=== PATIENT | male | born 1930 | race American Indian/Alaskan Native ===

== ENCOUNTER 2016-08-01 01:52 | Emergency (ER) | payer MEDICARE, OTHER, MEDICAID ==
[2016-08-01] MEDS ORDERED: Sodium Chloride 0.9% 10 ML Syringe FLUSH PRN (02:30)
[2016-08-01 04:48] VITALS: BP 142/66
--- NOTE | 2016-08-01 05:41 | EDM.PDOC ---
ED HISTORY OF PRESENT ILLNESS - General Chief Complaint: Chest Pain Stated Complaint: [facility] Time Seen by Provider: 08/01/16 02:30 Source: Reports: Patient, EMS, Family History Limitations: Reports: No limitations - History of Present Illness INITIAL COMMENTS - FREE TEXT/NARRATIVE: This patient arrived by EMS with the complaint of chest pain. He described it as a dull pain across the front chest. It lasted a total of about 15 minutes and did when EMS gave him a spray of nitroglycerin and aspirin. The patient thinks it's because his blood sugar got low. He he said that the blood sugar had gotten down to 67 before this episode and generally when his blood sugar gets down he starts getting some palpitations and chest pain. He says he has no history of any kind of heart disease. He did have a stroke last year. He denies any shortness of breath diaphoresis or nausea - Related Data Allergies/ADRs: Allergies Allergy/AdvReac Type Severity Reaction Status Date / Time amoxicillin Allergy Rash Verified 08/01/16 02:27 insulin glargine, human Allergy Cannot Verified 08/01/16 02:27 recombin. a Remember [From Lantus] Penicillins Allergy Rash Verified 08/01/16 02:27 lisinopril AdvReac Cough Verified 08/01/16 02:27 Home Meds: Home Meds *Urea 10% Lotion 1 dose TOP Q8H PRN 06/28/15 [History] Aspirin 81 mg PO DAILY 06/28/15 [History] Atenolol 25 mg PO BID 06/28/15 [History] Cholecalciferol (Vitamin D3) [Vitamin D3] 1,000 units PO BID 06/28/15 [History] Ranitidine [Zantac] 150 mg PO DAILY 06/28/15 [History] amLODIPine Besylate [Amlodipine Besylate] 10 mg PO DAILY 06/28/15 [History] atorvaSTATin [Lipitor] 40 mg PO BEDTIME 06/28/15 [History] cloNIDine HCl [Clonidine HCl] 0.2 mg PO BEDTIME 06/28/15 [History] Levothyroxine 125 mcg PO ACBREAKFAST 01/03/16 [History] Tiotropium [Spiriva HandiHaler] 18 mcg PO DAILY 02/24/16 [History] Baclofen 10 mg PO Q8H PRN 11/17/16 [History] Losartan [Cozaar] 25 mg PO DAILY 04/17/16 [History] hydrOXYzine HCl [hydrOXYzine] 25 mg PO Q12HR PRN 04/17/16 [History] *O2 3 l INH ASDIRECTED 04/24/16 [History] Clopidogrel [Plavix] 1 tab PO DAILY 08/01/16 [History] Doxepin [SINEquan] 1 - 2 cap PO BEDTIME 08/01/16 [History] Gabapentin [Neurontin] 1 tab PO BEDTIME 08/01/16 [History] Insulin NPH/Insulin Reg,Human [Novolin 70-30] 60 units SUBCUT BID 08/01/16 [ History] Ipratropium [place] 1 dose INH QID 08/01/16 [History] guaiFENesin/Codeine Phosphate [Guaiatussin AC Liquid] 5 ml PO Q4HR PRN 08/01/16 [History] hydrOXYzine HCl [hydrOXYzine] 1 tab PO BEDTIME 08/01/16 [History] Past Medical History HEENT History: Reports: Allergic rhinitis, Cataract, Hard of hearing, Impaired vision, Sinusitis Cardiovascular History: Reports: Aneurysm, High cholesterol, Hypertension, Other (see below) Other Cardiovascular History: 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 Uses 3 liters of O2. Gastrointestinal History: Reports: GERD Genitourinary History: Reports: Diabetic nephropathy, Prostate disorder, Urinary incontinence, UTI, recurrent Other Genitourinary History: known UTI Musculoskeletal History: Reports: Arthritis, Back pain, chronic, Other (see below) Other Musculoskeletal History: "sciatica Neurological History: Reports: CVA, Head trauma, Neuropathy, diabetic, Seizure, TIA, Other (see below) Other Neuro History: aneurysm 1999. Psychiatric History: Reports: Anxiety, Depression Endocrine/Metabolic History: Reports: Diabetes, type II, Hypothyroidism - Infectious Disease History Infectious Disease History: Reports: Chicken pox - Past Surgical History HEENT Surgical History: Reports: Cataract surgery, Oral surgery, Tonsillectomy GI Surgical History: Reports: Cholecystectomy Social & Family History - Family History Family Medical History: Unobtainable - Tobacco Use Smoking Status *Q: Never Smoker Years of Tobacco use: 12 Packs/Tins Daily: 1 Used Tobacco, but Quit: No Month Tobacco Last Used: 1995 Second Hand Smoke Exposure: No - Caffeine Use Caffeine Use: Reports: Coffee, Soda, Tea - Recreational Drug Use Recreational Drug Use: No - Living Situation & Occupation Occupation: disabled (lives with his Son in [place], [place].) ED ROS GENERAL - Review of Systems Review Of Systems: See Below Constitutional: Reports: no symptoms HEENT: Reports: No symptoms Respiratory: Reports: no symptoms Cardiovascular: Reports: Chest pain Endocrine: Reports: no symptoms GI/Abdominal: Reports: No symptoms : Reports: no symptoms ED EXAM, GENERAL - Physical Exam Exam: See Below Exam Limited By: No limitations General Appearance: alert, WD/WN, no apparent distress Eye Exam: bilateral eye: normal inspection Ears: normal external exam Nose: normal inspection Throat/Mouth: Normal inspection Head: atraumatic Neck: normal inspection Respiratory/Chest: lungs clear Cardiovascular: normal peripheral pulses, regular rate, rhythm, no murmur GI/Abdominal: soft, non tender Back Exam: normal inspection Extremities: normal inspection Neurological: alert, oriented, CN II-XII intact Psychiatric: normal affect Skin Exam: Warm, Dry Course - Vital Signs Last Recorded V/S: Last Vital Signs Temp 36.4 C 08/01/16 02:11 Pulse 61 08/01/16 04:48 Resp 14 08/01/16 02:11 BP 142/66 H 08/01/16 04:48 Pulse Ox 96 08/01/16 04:48 - Orders/Labs/Meds Orders: Active Orders 24 hr Category Date Time Status EKG Documentation Completion [RC] ASDIRECTED Care 08/01/16 02:31 Active Chest 1V Frontal [CR] Urgent Exams 08/01/16 02:31 Taken Sodium Chloride 0.9% [Saline Flush] Med 08/01/16 02:30 Active 10 ml FLUSH ASDIRECTED PRN Saline Lock Insert [OM.PC] Urgent Oth 08/01/16 02:30 Ordered EKG 12 Lead [EK] Urgent Ther 08/01/16 02:31 Ordered Medication Orders Sodium Chloride (Saline Flush) 10 ml FLUSH ASDIRECTED PRN PRN Reason: Keep Vein Open Labs: Laboratory Tests 08/01/16 08/01/16 08/01/16 Range/Units 02:30 02:30 04:30 WBC 10.3 (4.5-11.0) K/uL RBC 3.89 L (4.30-5.90) M/uL Hgb 11.8 L (12.0-15.0) g/dL Hct 34.4 L (40.0-54.0) % MCV 88 (80-98) fL MCH 30 (27-31) pg MCHC 34 (32-36) % Plt Count 271 (150-400) K/uL Neut % (Auto) 72 H (36-66) % Lymph % (Auto) 14 L (24-44) % [place] % (Auto) 11 H (2-6) % Eos % (Auto) 4 (2-4) % Baso % (Auto) 1 (0-1) % Sodium 137 L (140-148) mmol/L Potassium 3.9 (3.6-5.2) mmol/L Chloride 101 (100-108) mmol/L Carbon Dioxide 27 (21-32) mmol/L Anion Gap 12.9 (5.0-14.0) mmol/L BUN 17 (7-18) mg/dL Creatinine 1.4 H (0.8-1.3) mg/dL Est Cr Clr Drug Dosing 36.72 mL/min Estimated GFR (MDRD) 48 L (>60) Glucose 158 H (74-106) mg/dL Calcium 8.5 (8.5-10.1) mg/dL Total Bilirubin 0.3 (0.2-1.0) mg/dL AST 13 L (15-37) U/L ALT 18 (12-78) U/L Alkaline Phosphatase 78 (46-116) U/L Troponin I < 0.017 < 0.017 (0.000-0.056) ng/mL Total Protein 6.8 (6.4-8.2) g/dL Albumin 3.1 L (3.4-5.0) g/dL Globulin 3.7 H (2.3-3.5) g/dL Albumin/Globulin Ratio 0.8 L (1.2-2.2) Meds: Medications Generic Name Dose Route Start Last Admin Trade Name Freq PRN Reason Stop Dose Admin Sodium Chloride 10 ml 08/01/16 02:30 Saline Flush FLUSH ASDIRECTED PRN Keep Vein Open - Re-Assessments/Exams Free Text/Narrative Re-Assessment/Exam: 08/01/16 05:52 The patient remained pain free the entire time here in the ER. EKG shows sinus rhythm at 62 beats per minute there is an old inferior infarct. There are no appreciable ST or T changes. This was reviewed with two previous EKGs Initial troponin and a 2 hour troponin are both negative. Departure - Departure Time of Disposition: 05:38 Disposition: Home, Self-Care 01 Condition: fair Clinical Impression: Chest pain Instructions: Chest Wall Pain, [id number] Referrals: PCP,None [Primary Care Provider] - Forms: ED Department Discharge Additional Instructions: Continue checking her blood sugar regularly as before. If you are getting low readings then contact your Dr. about adjusting the dose. For you, anything below 100 is too low. - My Orders Last 24 Hours: My Active Orders 08/01/16 02:30 Sodium Chloride 0.9% [Saline Flush] 10 ml FLUSH ASDIRECTED PRN Saline Lock Insert [OM.PC] Urgent 08/01/16 02:31 EKG Documentation Completion [RC] ASDIRECTED Chest 1V Frontal [CR] Urgent EKG 12 Lead [EK] Urgent - Assessment/Plan Last 24 Hours: My Active Orders 08/01/16 02:30 Sodium Chloride 0.9% [Saline Flush] 10 ml FLUSH ASDIRECTED PRN Saline Lock Insert [OM.PC] Urgent 08/01/16 02:31 EKG Documentation Completion [RC] ASDIRECTED Chest 1V Frontal [CR] Urgent EKG 12 Lead [EK] Urgent
--- NOTE | 2016-08-01 09:14 | CR ---
Chest 1V Frontal HISTORY: Chest pain. COMPARISON: 04/24/2016. FINDINGS: Limited inspiration. Cardiac size normal. Pulmonary vessels normally distributed. No focal infiltrates or effusions.
== END 2016-08-01 06:10 | disposition home or self-care (01) ==
LOC: JP.ED 01:52
DX: R07.9 Chest pain, unspecified (principal); I10 Essential (primary) hypertension; E11.40 Type 2 diabetes mellitus with diabetic neuropathy, unspecified; F41.9 Anxiety disorder, unspecified; F32.9 Major depressive disorder, single episode, unspecified; E03.9 Hypothyroidism, unspecified; Z98.49 Cataract extraction status, unspecified eye; Z90.49 Acquired absence of other specified parts of digestive tract; Z98.890 Other specified postprocedural states; Z86.73 Personal history of transient ischemic attack (TIA), and cerebral infarction without residual deficits; Z79.82 Long term (current) use of aspirin; Z79.02 Long term (current) use of antithrombotics/antiplatelets; Z79.4 Long term (current) use of insulin; Z79.899 Other long term (current) drug therapy; Z88.0 Allergy status to penicillin; Z88.1 Allergy status to other antibiotic agents; Z88.8 Allergy status to other drugs, medicaments and biological substances
CPT/HCPCS: 36415; 71010; 71010-26; 80053; 84484; 85025; 93005; 93010; 99284; 99285-25

== ENCOUNTER 2016-10-05 20:32 | Inpatient (IN) | payer MEDICARE, OTHER, MEDICAID ==
[2016-10-05] MEDS ORDERED: Sodium Chloride 0.9% 1,000 ML IV SCH (21:15)
[2016-10-05] MEDS ORDERED: Levofloxacin/Dextrose 5%-Water 500 MG in Premix Bag 1 BAG IV ONE (22:00)
[2016-10-05] MEDS ORDERED: cefTRIAXone 1 GM in Sodium Chloride 0.9% 50 ML IV ONE (22:48)
--- NOTE | 2016-10-05 23:50 | EDM.PDOC ---
ED HPI GENERAL MEDICAL PROBLEM - General Chief Complaint: Chest Pain Stated Complaint: [facility] Time Seen by Provider: 10/05/16 20:39 Source of Information: Reports: Patient, Family (Son) History Limitations: Reports: No limitations - History of Present Illness INITIAL COMMENTS - FREE TEXT/NARRATIVE: weakness, this is a 86 year old male presents to ER with his adult Son for evaluation. His Son reports for the past week, Mr. Mccloud has been having increased weakness, was walking with cane, now use a walker for the past week, decrease appetite, he is seeing former and friends, intermittent shaking chills with fever. reports chest discomfort from frequent cough, no appetitie for 2 days. reports bladder infection 2-3 weeks ago. took all medication as directed. history of vascular dementia. lives with Son Primary Care Provider; Keerthi Birch NP, [facility] Onset: gradual Duration: Week(s): (one week of increasing weakness and fatigue), Waxing/waning Location: Reports: generalized Improves with: Reports: Rest Worsens with: Reports: Movement Associated Symptoms: Reports: confusion (intermittent), cough, fever/chills, malaise, nausea/vomiting, shortness of breath (chronic) Treatments JBOSS DEVELOPER: Reports: Nitroglycerin, Other (see below) Other Treatments JBOSS DEVELOPER: Nitro by ambulance Left lower Chest Pain Score (Numeric/FACES): 6 - Related Data Allergies Allergy/AdvReac Type Severity Reaction Status Date / Time amoxicillin Allergy Rash Verified 10/05/16 20:51 insulin glargine, human Allergy Cannot Verified 10/05/16 20:51 recombin. a Remember [From Lantus] Penicillins Allergy Rash Verified 10/05/16 20:51 lisinopril AdvReac Cough Verified 10/05/16 20:51 Home Meds: Home Meds *Urea 10% Lotion 1 dose TOP Q8H PRN 06/28/15 [History] Aspirin 81 mg PO DAILY 06/28/15 [History] Atenolol 25 mg PO BID 06/28/15 [History] Cholecalciferol (Vitamin D3) [Vitamin D3] 1,000 units PO BID 06/28/15 [History] Ranitidine [Zantac] 150 mg PO DAILY 06/28/15 [History] amLODIPine Besylate [Amlodipine Besylate] 10 mg PO DAILY 06/28/15 [History] atorvaSTATin [Lipitor] 40 mg PO BEDTIME 06/28/15 [History] cloNIDine HCl [Clonidine HCl] 0.2 mg PO BEDTIME 06/28/15 [History] Levothyroxine 125 mcg PO ACBREAKFAST 01/03/16 [History] Tiotropium [Spiriva HandiHaler] 18 mcg PO DAILY 02/24/16 [History] Baclofen 10 mg PO Q8H PRN 04/17/16 [History] Losartan [Cozaar] 25 mg PO DAILY 04/17/16 [History] hydrOXYzine HCl [hydrOXYzine] 25 mg PO Q12HR PRN 04/17/16 [History] *O2 1.5 l INH ASDIRECTED 04/24/16 [History] Clopidogrel [Plavix] 1 tab PO DAILY 08/01/16 [History] Doxepin [SINEquan] 1 - 2 cap PO BEDTIME 08/01/16 [History] Gabapentin [Neurontin] 1 tab PO BEDTIME 08/01/16 [History] Insulin NPH/Insulin Reg,Human [Novolin 70-30] 60 units SUBCUT BID 08/01/16 [ History] Ipratropium [place] 1 dose INH QID 08/01/16 [History] guaiFENesin/Codeine Phosphate [Guaiatussin AC Liquid] 5 ml PO Q4HR PRN 08/01/16 [History] hydrOXYzine HCl [hydrOXYzine] 1 tab PO BEDTIME 08/01/16 [History] Past Medical History HEENT History: Reports: Allergic rhinitis, Cataract, Hard of hearing, Impaired vision, Sinusitis Cardiovascular History: Reports: Aneurysm, High cholesterol, Hypertension, Other (see below) Other Cardiovascular History: 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 Uses 3 liters of O2. Gastrointestinal History: Reports: GERD Genitourinary History: Reports: Diabetic nephropathy, Prostate disorder, Urinary incontinence, UTI, recurrent Other Genitourinary History: known UTI Musculoskeletal History: Reports: Arthritis, Back pain, chronic, Other (see below) Other Musculoskeletal History: "sciatica Neurological History: Reports: CVA, Head trauma, Neuropathy, diabetic, Seizure, TIA, Other (see below) Other Neuro History: aneurysm 1999. Psychiatric History: Reports: Anxiety, Depression Endocrine/Metabolic History: Reports: Diabetes, type II, Hypothyroidism - Infectious Disease History Infectious Disease History: Reports: Chicken pox, Influenza - Past Surgical History HEENT Surgical History: Reports: Cataract surgery, Oral surgery, Tonsillectomy GI Surgical History: Reports: Cholecystectomy Social & Family History - Family History Family Medical History: Unobtainable - Tobacco Use Smoking Status *Q: Never Smoker Years of Tobacco use: 12 Packs/Tins Daily: 1 Used Tobacco, but Quit: No Month Tobacco Last Used: 1995 Second Hand Smoke Exposure: No - Caffeine Use Caffeine Use: Reports: Coffee, Tea - Recreational Drug Use Recreational Drug Use: No - Living Situation & Occupation Occupation: disabled (lives with his Son in [place], [place].) ED ROS GENERAL - Review of Systems Review Of Systems: See Below Constitutional: Reports: fever, chills, malaise, weakness, fatigue, decreased appetite (x 2 days) HEENT: Reports: No symptoms Respiratory: Reports: Shortness of Breath, Pleuritic Chest Pain, Cough, Sputum Cardiovascular: Reports: No symptoms, Dyspnea on exertion, Edema Endocrine: Reports: other (diaabetes) GI/Abdominal: Reports: Nausea : Reports: other (recent treatment for UTI 2-3 weeks ago.) Musculoskeletal: Reports: muscle pain, muscle stiffness Skin: Reports: erythema, change in hair/nails Neurological: Reports: Pre-Existing Deficit Psychiatric: Reports: No symptoms Hematologic/Lymphatic: Reports: no symptoms Immunologic: Reports: no symptoms ED EXAM, GENERAL - Physical Exam Exam: See Below Exam Limited By: No limitations General Appearance: alert, WD/WN, no apparent distress Eye Exam: bilateral eye: EOMI Ears: normal external exam, normal canal, hearing grossly normal, normal TMs Ear Exam: bilateral ear: auricle normal, canal normal Nose: normal inspection, normal mucosa, no blood Throat/Mouth: Normal inspection, Normal lips, Normal teeth, Normal gums, Normal oropharynx, Normal voice, No airway compromise Head: atraumatic, normocephalic Neck: normal inspection, supple, non-tender, full range of motion Respiratory/Chest: no respiratory distress, crackles, rhonchi Cardiovascular: regular rate, rhythm, other (bilateral lower leg edema) GI/Abdominal: normal bowel sounds, soft, non tender, no organomegaly, no distention (Male) Exam: Deferred Rectal (Males) Exam: Deferred Back Exam: normal inspection Extremities: pedal edema Neurological: alert, oriented, normal reflexes Psychiatric: normal affect, normal mood Skin Exam: Warm, Dry, Normal color, Wound/incision (between toes skin is moist, red, with white exudate) Course - Vital Signs Last Recorded V/S: Last Vital Signs Temp 37.1 C 10/05/16 20:45 Pulse 96 10/05/16 23:00 Resp 16 10/05/16 21:00 BP 162/73 H 10/05/16 23:00 Pulse Ox 93 L 10/05/16 23:00 - Orders/Labs/Meds Orders: Active Orders 24 hr Category Date Time Status Patient Status Manage Transfer [TRANSFER] Routine ADT 10/05/16 22:55 Active Cardiac Monitoring [RC] .As Directed Care 10/05/16 22:55 Active EKG Documentation Completion [RC] ASDIRECTED Care 10/05/16 21:01 Active Chest 1V Frontal [CR] Urgent Exams 10/05/16 21:00 Taken CULTURE BLOOD [BC] Urgent Lab 10/05/16 22:00 Received CULTURE BLOOD [BC] Urgent Lab 10/05/16 22:10 Received Sodium Chloride 0.9% [Normal Saline] 1,000 ml Med 10/05/16 21:15 Active IV ASDIRECTED Blood Culture x2 Reflex Set [OM.PC] Urgent Oth 10/05/16 21:59 Ordered Resuscitation Status Routine Resus Stat 10/05/16 22:57 Ordered EKG 12 Lead [EK] Urgent Ther 10/05/16 21:00 Ordered Medication Orders Sodium Chloride (Normal Saline) 1,000 mls @ 75 mls/hr IV ASDIRECTED SHMUEL Last Admin: 10/05/16 21:39 Dose: 75 mls/hr Labs: Laboratory Tests 10/05/16 10/05/16 10/05/16 Range/Units 21:14 21:14 21:14 WBC 11.9 H (4.5-11.0) K/uL RBC 4.47 (4.30-5.90) M/uL Hgb 13.3 (12.0-15.0) g/dL Hct 39.6 L (40.0-54.0) % MCV 89 (80-98) fL MCH 30 (27-31) pg MCHC 34 (32-36) % Plt Count 274 (150-400) K/uL Neut % (Auto) 76 H (36-66) % Lymph % (Auto) 11 L (24-44) % [place] % (Auto) 11 H (2-6) % Eos % (Auto) 2 (2-4) % Baso % (Auto) 1 (0-1) % PT 10.6 (9.5-12.0) sec INR 1.00 (0.80-1.20) Sodium 140 (140-148) mmol/L Potassium 4.6 (3.6-5.2) mmol/L Chloride 103 (100-108) mmol/L Carbon Dioxide 28 (21-32) mmol/L Anion Gap 8.8 (5.0-14.0) mmol/L BUN 21 H (7-18) mg/dL Creatinine 1.5 H (0.8-1.3) mg/dL Est Cr Clr Drug Dosing 34.27 mL/min Estimated GFR (MDRD) 45 L (>60) Glucose 148 H (74-106) mg/dL Lactic Acid (0.4-2.0) mmol/L Calcium 8.5 (8.5-10.1) mg/dL Magnesium 1.9 (1.8-2.4) mg/dL Total Bilirubin 0.3 (0.2-1.0) mg/dL AST 17 (15-37) U/L ALT 18 (12-78) U/L Alkaline Phosphatase 115 (46-116) U/L Troponin I < 0.017 (0.000-0.056) ng/mL [id number] Pept 111 (5-450) pg/mL Total Protein 7.7 (6.4-8.2) g/dL Albumin 3.6 (3.4-5.0) g/dL Globulin 4.1 H (2.3-3.5) g/dL Albumin/Globulin Ratio 0.9 L (1.2-2.2) Amylase 39 (25-115) U/L Lipase 86 (73-393) U/L TSH, Ultra Sensitive 4.803 H (0.358-3.740) uIU/mL Urine Color Urine Appearance Urine pH (4.5-8.0) Ur Specific [place] (1.008-1.030) Urine Protein (NEGATIVE) mg/dL Urine Glucose (UA) (NEGATIVE) mg/dL Urine Ketones (NEGATIVE) mg/dL Urine Occult Blood (NEGATIVE) Urine Nitrite (NEGAITVE) Urine Bilirubin (NEGATIVE) Urine Urobilinogen (NORMAL) mg/dL Ur Leukocyte Esterase (NEGATIVE) Urine RBC (0-5) Urine WBC (0-5) Ur Epithelial Cells Amorphous Sediment Urine Bacteria Urine Mucus 10/05/16 10/05/16 Range/Units 21:14 22:08 WBC (4.5-11.0) K/uL RBC (4.30-5.90) M/uL Hgb (12.0-15.0) g/dL Hct (40.0-54.0) % MCV (80-98) fL MCH (27-31) pg MCHC (32-36) % Plt Count (150-400) K/uL Neut % (Auto) (36-66) % Lymph % (Auto) (24-44) % [place] % (Auto) (2-6) % Eos % (Auto) (2-4) % Baso % (Auto) (0-1) % PT (9.5-12.0) sec INR (0.80-1.20) Sodium (140-148) mmol/L Potassium (3.6-5.2) mmol/L Chloride (100-108) mmol/L Carbon Dioxide (21-32) mmol/L Anion Gap (5.0-14.0) mmol/L BUN (7-18) mg/dL Creatinine (0.8-1.3) mg/dL Est Cr Clr Drug Dosing mL/min Estimated GFR (MDRD) (>60) Glucose (74-106) mg/dL Lactic Acid 2.0 (0.4-2.0) mmol/L Calcium (8.5-10.1) mg/dL Magnesium (1.8-2.4) mg/dL Total Bilirubin (0.2-1.0) mg/dL AST (15-37) U/L ALT (12-78) U/L Alkaline Phosphatase (46-116) U/L Troponin I (0.000-0.056) ng/mL [id number] Pept (5-450) pg/mL Total Protein (6.4-8.2) g/dL Albumin (3.4-5.0) g/dL Globulin (2.3-3.5) g/dL Albumin/Globulin Ratio (1.2-2.2) Amylase (25-115) U/L Lipase (73-393) U/L TSH, Ultra Sensitive (0.358-3.740) uIU/mL Urine Color Yellow Urine Appearance Cloudy Urine pH 6.0 (4.5-8.0) Ur Specific [place] 1.010 (1.008-1.030) Urine Protein Negative (NEGATIVE) mg/dL Urine Glucose (UA) Normal (NEGATIVE) mg/dL Urine Ketones Negative (NEGATIVE) mg/dL Urine Occult Blood Moderate (NEGATIVE) Urine Nitrite Negative (NEGAITVE) Urine Bilirubin Negative (NEGATIVE) Urine Urobilinogen Normal (NORMAL) mg/dL Ur Leukocyte Esterase Large (NEGATIVE) Urine RBC 5-10 H (0-5) Urine WBC 20-30 H (0-5) Ur Epithelial Cells Few Amorphous Sediment Moderate Urine Bacteria Few Urine Mucus Few Meds: Medications Generic Name Dose Route Start Last Admin Trade Name Freq PRN Reason Stop Dose Admin Sodium Chloride 1,000 mls @ 75 mls/hr 10/05/16 21:15 10/05/16 21:39 Normal Saline IV 75 mls/hr ASDIRECTED SHMUEL Administration Discontinued Medications Generic Name Dose Route Start Last Admin Trade Name Freq PRN Reason Stop Dose Admin Levofloxacin/Dextrose 500 mg/ 100 mls @ 100 mls/hr 10/05/16 22:00 10/05/16 22 :21 Premix IV 10/05/16 22:59 100 mls/hr ONETIME ONE Administration Ceftriaxone Sodium 1 gm/ 50 mls @ 100 mls/hr 10/05/16 22:48 10/05/16 23:30 Sodium Chloride IV 10/05/16 23:17 100 mls/hr ONETIME ONE Administration Departure - Departure Time of Disposition: 00:03 Disposition: Admitted As Inpatient 68 Condition: good Clinical Impression: UTI (urinary tract infection), COPD (chronic obstructive pulmonary disease) with acute bronchitis, Weakness generalized, Diabetes mellitus type 2 with complications, CKD (chronic kidney disease) stage 3, GFR 30-59 ml/min, Cough Diabetes mellitus, type 2 Qualifiers: Diabetes mellitus complication status: with unspecified complications Diabetes mellitus prison insulin use: with terminal clerk use Qualified Code(s): E11.8 - Type 2 diabetes mellitus with unspecified complications COPD (chronic obstructive pulmonary disease) Qualifiers: COPD type: unspecified COPD Qualified Code(s): J44.9 - Chronic obstructive pulmonary disease, unspecified Forms: ED Department Discharge - My Orders Last 24 Hours: My Active Orders 10/05/16 21:00 Chest 1V Frontal [CR] Urgent EKG 12 Lead [EK] Urgent 10/05/16 21:01 EKG Documentation Completion [RC] ASDIRECTED 10/05/16 21:15 Sodium Chloride 0.9% [Normal Saline] 1,000 ml IV ASDIRECTED 10/05/16 21:59 Blood Culture x2 Reflex Set [OM.PC] Urgent 10/05/16 22:00 CULTURE BLOOD [BC] Urgent 10/05/16 22:10 CULTURE BLOOD [BC] Urgent 10/05/16 22:55 Patient Status Manage Transfer [TRANSFER] Routine Cardiac Monitoring [RC] .As Directed 10/05/16 22:57 Resuscitation Status Routine - Assessment/Plan Last 24 Hours: My Active Orders 10/05/16 21:00 Chest 1V Frontal [CR] Urgent EKG 12 Lead [EK] Urgent 10/05/16 21:01 EKG Documentation Completion [RC] ASDIRECTED 10/05/16 21:15 Sodium Chloride 0.9% [Normal Saline] 1,000 ml IV ASDIRECTED 10/05/16 21:59 Blood Culture x2 Reflex Set [OM.PC] Urgent 10/05/16 22:00 CULTURE BLOOD [BC] Urgent 10/05/16 22:10 CULTURE BLOOD [BC] Urgent 10/05/16 22:55 Patient Status Manage Transfer [TRANSFER] Routine Cardiac Monitoring [RC] .As Directed 10/05/16 22:57 Resuscitation Status Routine
[2016-10-06] MEDS ORDERED: Morphine 2 MG/ML Syringe IVPUSH PRN
[2016-10-06] MEDS ORDERED: LORazepam 2 MG/ML MDV IV PRN
[2016-10-06] MEDS ORDERED: hydrOXYzine HCl 50 MG/ML SDV IM PRN
[2016-10-06] MEDS ORDERED: OXYGEN INH SCH
[2016-10-06] MEDS ORDERED: 50% Dextrose in Water 50 ML Syringe IVPUSH PRN
[2016-10-06] MEDS ORDERED: Ondansetron 4 MG/2 ML SDV IV PRN
[2016-10-06] MEDS ORDERED: Baclofen 10 MG Tab PO PRN
[2016-10-06] MEDS ORDERED: Albuterol 0.083% 2.5 MG/3 ML Neb Soln NEB PRN
[2016-10-06] MEDS ORDERED: Ondansetron 4 MG Tab.DIS PO PRN
[2016-10-06] MEDS: Atenolol 25 MG Tab PO SCH ×3 (02:12→20:48)
[2016-10-06] MEDS: Zolpidem 5 MG Tab PO PRN ×2 (02:41→21:01)
--- NOTE | 2016-10-06 04:18 | PCM.HP ---
H&P History of Present Illness - General Date of Service: 10/05/16 Admit Problem/Dx: Admission Diagnosis/Problem Admission Diagnosis/Problem UTI, Urinary tract infectious disease Source of Information: Patient, Family History Limitations: Reports: No limitations, Altered mental status - History of Present Illness Initial Comments - Free Text/Narative: INITIAL COMMENTS - FREE TEXT/NARRATIVE: weakness, this is a 86 year old male presents to ER with his adult Son for evaluation. His Son reports for the past week, Mr. Mccloud has been having increased weakness, was walking with cane, now use a walker for the past week, decrease appetite, he is seeing former and friends, intermittent shaking chills with fever. reports chest discomfort from frequent cough, no appetite for 2 days. reports bladder infection 2-3 weeks ago. took all medication as directed. history of vascular dementia. lives with Son Onset of Symptoms: Reports: gradual Duration of Symptoms: Reports: Week(s): Location: Reports: generalized Improves with: Reports: None Worsens with: Reports: None Context: Reports: other (recent UTI, COPD, diabetes type 2) Associated Symptoms: Reports: confusion, chest pain, cough, fever/chills, shortness of breath, weakness Left lower Chest Pain Score (Numeric/FACES): 6 - Related Data Allergies/Adverse Reactions: Allergies Allergy/AdvReac Type Severity Reaction Status Date / Time amoxicillin Allergy Rash Verified 10/05/16 20:51 insulin glargine, human Allergy Cannot Verified 10/05/16 20:51 recombin. a Remember [From Lantus] Penicillins Allergy Rash Verified 10/05/16 20:51 lisinopril AdvReac Cough Verified 10/05/16 20:51 Home Medications: Home Meds *Urea 10% Lotion 1 dose TOP Q8H PRN 06/28/15 [History] Aspirin 81 mg PO DAILY 06/28/15 [History] Atenolol 25 mg PO BID 06/28/15 [History] Cholecalciferol (Vitamin D3) [Vitamin D3] 1,000 units PO BID 06/28/15 [History] Ranitidine [Zantac] 150 mg PO DAILY 06/28/15 [History] amLODIPine Besylate [Amlodipine Besylate] 10 mg PO DAILY 06/28/15 [History] atorvaSTATin [Lipitor] 40 mg PO BEDTIME 06/28/15 [History] cloNIDine HCl [Clonidine HCl] 0.2 mg PO BEDTIME 06/28/15 [History] Levothyroxine 125 mcg PO ACBREAKFAST 01/03/16 [History] Tiotropium [Spiriva HandiHaler] 18 mcg PO DAILY 02/24/16 [History] Baclofen 10 mg PO Q8H PRN 04/17/16 [History] Losartan [Cozaar] 25 mg PO DAILY 04/17/16 [History] hydrOXYzine HCl [hydrOXYzine] 25 mg PO Q12HR PRN 04/17/16 [History] *O2 1.5 l INH ASDIRECTED 04/24/16 [History] Clopidogrel [Plavix] 1 tab PO DAILY 08/01/16 [History] Doxepin [SINEquan] 1 - 2 cap PO BEDTIME 08/01/16 [History] Gabapentin [Neurontin] 1 tab PO BEDTIME 08/01/16 [History] Insulin NPH/Insulin Reg,Human [Novolin 70-30] 60 units SUBCUT BID 08/01/16 [ History] Ipratropium [place] 1 dose INH QID 08/01/16 [History] guaiFENesin/Codeine Phosphate [Guaiatussin AC Liquid] 5 ml PO Q4HR PRN 08/01/16 [History] hydrOXYzine HCl [hydrOXYzine] 1 tab PO BEDTIME 08/01/16 [History] Past Medical History HEENT History: Reports: Allergic rhinitis, Cataract, Hard of hearing, Impaired vision, Sinusitis Cardiovascular History: Reports: Aneurysm, High cholesterol, Hypertension, Other (see below) Other Cardiovascular History: 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 Uses 3 liters of O2. Gastrointestinal History: Reports: GERD Genitourinary History: Reports: Diabetic nephropathy, Prostate disorder, Urinary incontinence, UTI, recurrent Other Genitourinary History: known UTI Musculoskeletal History: Reports: Arthritis, Back pain, chronic, Other (see below) Other Musculoskeletal History: "sciatica Neurological History: Reports: CVA, Head trauma, Neuropathy, diabetic, Seizure, TIA, Other (see below) Other Neuro History: aneurysm 1999. Psychiatric History: Reports: Anxiety, Depression Endocrine/Metabolic History: Reports: Diabetes, type II, Hypothyroidism - Infectious Disease History Infectious Disease History: Reports: Chicken pox, Influenza - Past Surgical History HEENT Surgical History: Reports: Cataract surgery, Oral surgery, Tonsillectomy GI Surgical History: Reports: Cholecystectomy Social & Family History - Family History Family Medical History: Unobtainable - Tobacco Use Smoking Status *Q: Never Smoker Years of Tobacco use: 12 Packs/Tins Daily: 1 Used Tobacco, but Quit: No Month Tobacco Last Used: 1995 Second Hand Smoke Exposure: No - Caffeine Use Caffeine Use: Reports: Coffee, Tea - Recreational Drug Use Recreational Drug Use: No - Living Situation & Occupation Occupation: disabled (lives with his Son in [place], [place].) H&P Review of Systems - Review of Systems: Review Of Systems: See Below General: Reports: fever, chills, weakness, fatigue, decreased appetite HEENT: Reports: sinus congestion, sore throat Pulmonary: Reports: Shortness of Breath, Pleuritic Chest Pain, Cough, Sputum Cardiovascular: Reports: no symptoms Gastrointestinal: Reports: Nausea Genitourinary: Reports: dysuria, frequency, burning, pain, urgency Musculoskeletal: Reports: no symptoms Skin: Reports: rash (between toes) Psychiatric: Reports: no symptoms Neurological: Reports: Difficulty Walking (weakness) Hematologic/Lymphatic: Reports: no symptoms Immunologic: Reports: no symptoms Exam - Exam Exam: See Below - Vital Signs Vital Signs: Last Vital Signs Temp 37.2 C 10/06/16 02:42 Pulse 68 10/06/16 02:42 Resp 18 10/06/16 02:42 BP 140/48 L 10/06/16 02:42 Pulse Ox 91 L 10/06/16 02:42 Weight: 90.265 kg - Exam Quality Assessment: supplemental oxygen General: alert, oriented, cooperative, mild distress HEENT: PERRLA, Mucosa moist & pink Neck: supple, trachea midline Lungs: Decreased breath sounds, Crackles, Rhonchi Cardiovascular: regular rate, regular rhythm, normal S1, normal S2 Abdomen: Normal Bowel Sounds, Soft (Male) Exam: Deferred Rectal (Males) Exam: Deferred Back Exam: normal inspection Extremities: normal inspection Skin: rash (fungal rash between toes, toenail are extreme long) Neurological: reflexes equal bilateral, strength equal bilateral Neuro Extensive - Mental Status: alert, oriented x3, normal mood/affect, normal cognition Neuro Extensive - Motor, Sensory, Reflexes: normal reflexes Psychiatric: alert, normal affect, normal mood - Patient Data Result Diagrams: 10/07/16 05:00 10/07/16 05:00 *Q Meaningful Use (ADM) - VTE *Q VTE Criteria *Q: - Stroke *Q Stroke Criteria *Q: - AMI *Q AMI Criteria *Q: - Problem List (1) COPD (chronic obstructive pulmonary disease) with acute bronchitis SNOMED Code(s): 012549820560939 ICD Code: J44.0 - CHRONIC OBSTRUCTIVE PULMON DISEASE W ACUTE LOWER RESP INFCT Status: Acute Priority: High Current Visit: Yes (2) Diabetes mellitus type 2 with complications SNOMED Code(s): 46928995, 61632458027171 ICD Code: E11.8 - TYPE 2 DIABETES MELLITUS WITH UNSPECIFIED COMPLICATIONS Status: Acute Priority: High Current Visit: Yes Qualifiers: Diabetes mellitus project/production manager imaging insulin use: with project/production manager imaging use Qualified Code( s): E11.8 - Type 2 diabetes mellitus with unspecified complications; Z79.4 - senior care (current) use of insulin (3) UTI (urinary tract infection) SNOMED Code(s): 89511365 ICD Code: N39.0 - URINARY TRACT INFECTION, SITE NOT SPECIFIED Status: Acute Priority: High Current Visit: Yes Qualifiers: Urinary tract infection type: site unspecified (4) Weakness generalized SNOMED Code(s): 12232830 ICD Code: R53.1 - WEAKNESS Status: Acute Priority: High Current Visit: Yes (5) CKD (chronic kidney disease) stage 3, GFR 30-59 ml/min SNOMED Code(s): 403554485 ICD Code: N18.3 - CHRONIC KIDNEY DISEASE, STAGE 3 (MODERATE) Status: Chronic Priority: High Current Visit: Yes (6) Cough SNOMED Code(s): 29360605 ICD Code: R05 - COUGH Status: Chronic Priority: High Current Visit: Yes Problem List Initiated/Reviewed/Updated: Yes Orders Last 24hrs: Active Orders 24 hr Category Date Time Status Patient Status [ADT] Routine ADT 10/06/16 00:00 Active Diabetes Education [RC] Click To Edit Care 10/06/16 00:00 Active Intake and Output [RC] QSHIFT Care 10/06/16 00:00 Active Notify Provider [RC] PRN Care 10/06/16 00:00 Active Oxygen Therapy [RC] PRN Care 10/06/16 00:00 Active RT Aerosol Therapy [RC] ASDIRECTED Care 10/06/16 00:00 Active Up With Assistance [RC] ASDIRECTED Care 10/06/16 00:00 Active VTE/DVT Education [RC] Per Unit Routine Care 10/06/16 00:00 Active Vital Signs [RC] Q4H Care 10/06/16 00:00 Active Consult to Spiritual Care [CONS] Routine Cons 10/06/16 00:00 Active OT Evaluation and Treatment [CONS] Routine Cons 10/06/16 00:00 Active PT Evaluation and Treatment [CONS] Routine Cons 10/06/16 00:00 Active Consistent Carbohydrate Diet [DIET] Diet 10/06/16 Breakfast Active BASIC METABOLIC PANEL,BMP [CHEM] Routine Lab 10/06/16 05:11 Ordered CBC WITH AUTO DIFF [HEME] Routine Lab 10/06/16 05:11 Ordered CULTURE RESPIRATORY + SMEAR [RM] Stat Lab 10/06/16 00:00 Uncollected GLUCOSE POC LAB TO COLLECT [POC] QIDACANDBED Lab 10/06/16 07:30 Ordered GLUCOSE POC LAB TO COLLECT [POC] QIDACANDBED Lab 10/06/16 11:30 Ordered GLUCOSE POC LAB TO COLLECT [POC] QIDACANDBED Lab 10/06/16 16:30 Ordered GLUCOSE POC LAB TO COLLECT [POC] QIDACANDBED Lab 10/06/16 21:00 Ordered GLUCOSE POC LAB TO COLLECT [POC] QIDACANDBED Lab 10/07/16 07:30 Ordered GLUCOSE POC LAB TO COLLECT [POC] QIDACANDBED Lab 10/07/16 11:30 Ordered GLUCOSE POC LAB TO COLLECT [POC] QIDACANDBED Lab 10/07/16 16:30 Ordered GLUCOSE POC LAB TO COLLECT [POC] QIDACANDBED Lab 10/07/16 21:00 Ordered GLUCOSE POC LAB TO COLLECT [POC] QIDACANDBED Lab 10/08/16 07:30 Ordered GLUCOSE POC LAB TO COLLECT [POC] QIDACANDBED Lab 10/08/16 11:30 Ordered GLUCOSE POC LAB TO COLLECT [POC] QIDACANDBED Lab 10/08/16 16:30 Ordered GLUCOSE POC LAB TO COLLECT [POC] QIDACANDBED Lab 10/08/16 21:00 Ordered GLUCOSE POC LAB TO COLLECT [POC] QIDACANDBED Lab 10/09/16 07:30 Ordered GLUCOSE POC LAB TO COLLECT [POC] QIDACANDBED Lab 10/09/16 11:30 Ordered GLUCOSE POC LAB TO COLLECT [POC] QIDACANDBED Lab 10/09/16 16:30 Ordered GLUCOSE POC LAB TO COLLECT [POC] QIDACANDBED Lab 10/09/16 21:00 Ordered GLUCOSE POC LAB TO COLLECT [POC] QIDACANDBED Lab 10/10/16 07:30 Ordered GLUCOSE POC LAB TO COLLECT [POC] QIDACANDBED Lab 10/10/16 11:30 Ordered GLUCOSE POC LAB TO COLLECT [POC] QIDACANDBED Lab 10/10/16 16:30 Ordered GLUCOSE POC LAB TO COLLECT [POC] QIDACANDBED Lab 10/10/16 21:00 Ordered GLUCOSE POC LAB TO COLLECT [POC] QIDACANDBED Lab 10/11/16 07:30 Ordered GLUCOSE POC LAB TO COLLECT [POC] QIDACANDBED Lab 10/11/16 11:30 Ordered GLUCOSE POC LAB TO COLLECT [POC] QIDACANDBED Lab 10/11/16 16:30 Ordered GLUCOSE POC LAB TO COLLECT [POC] QIDACANDBED Lab 10/11/16 21:00 Ordered GLUCOSE POC LAB TO COLLECT [POC] QIDACANDBED Lab 10/12/16 07:30 Ordered GLUCOSE POC LAB TO COLLECT [POC] QIDACANDBED Lab 10/12/16 11:30 Ordered GLUCOSE POC LAB TO COLLECT [POC] QIDACANDBED Lab 10/12/16 16:30 Ordered GLUCOSE POC LAB TO COLLECT [POC] QIDACANDBED Lab 10/12/16 21:00 Ordered Acetaminophen [Tylenol] Med 10/06/16 00:00 Active 650 mg PO Q4H PRN Albuterol [Proventil Neb Soln] Med 10/06/16 00:00 Active 2.5 mg NEB Q4H PRN Aspirin Med 10/06/16 09:00 Active 81 mg PO DAILY Atenolol [Tenormin] Med 10/06/16 00:00 Active 25 mg PO BID Baclofen [Lioresal] Med 10/06/16 00:00 Active 10 mg PO Q8H PRN Clopidogrel [Plavix] Med 10/06/16 09:00 Active 75 mg PO DAILY Codeine/guaiFENesin [Robitussin AC] Med 10/06/16 00:28 Active 5 ml PO Q4H PRN Docusate Sodium [Colace] Med 10/06/16 00:00 Active 100 mg PO BID PRN Doxepin [SINEquan] Med 10/06/16 21:00 Active 0 mg PO BEDTIME Gabapentin [Neurontin] Med 10/06/16 21:00 Active 100 mg PO BEDTIME Insulin Aspart [NovoLOG] Med 10/06/16 00:00 Active See Protocol SUBCUT ASDIRECTED Insulin NPH/Insulin Reg,Human [NovoLIN 70-30] Med 10/06/16 00:00 Active 60 unit SUBCUT BID Ipratropium [Atrovent] Med 10/06/16 06:00 Active 0.5 mg INH QID LORazepam [Ativan] Med 10/06/16 00:00 Active 1 mg IV Q6H PRN Levofloxacin/Dextrose 5%-Water [Levaquin in D5W 500 MG/ Med 10/06/16 21:00 Active 100 ML] 500 mg Premix Bag 1 bag IV Q24H Levothyroxine [Synthroid] Med 10/06/16 07:30 Active 125 mcg PO ACBREAKFAST Losartan [Cozaar] Med 10/06/16 09:00 Active 25 mg PO DAILY Magnesium Hydroxide [Milk of Magnesia] Med 10/06/16 00:00 Active 30 ml PO Q12H PRN Morphine Med 10/06/16 00:00 Active 2 mg IVPUSH Q2H PRN Ondansetron [Zofran ODT] Med 10/06/16 00:00 Active 4 mg PO Q6H PRN Ondansetron [Zofran] Med 10/06/16 00:00 Active 4 mg IV Q4H PRN Pantoprazole [ProTONIX IV] Med 10/06/16 09:00 Active 40 mg IVPUSH DAILY Tiotropium [Spiriva HandiHaler] Med 10/06/16 09:00 Active 18 mcg INH DAILY Zolpidem [Ambien] Med 10/06/16 00:00 Active 5 mg PO BEDTIME PRN amLODIPine [Norvasc] Med 10/06/16 09:00 Active 10 mg PO DAILY cefTRIAXone [Rocephin] 1 gm Med 10/06/16 09:00 Active Sodium Chloride 0.9% [Normal Saline] 50 ml IV Q24H cloNIDine [Catapres] Med 10/06/16 21:00 Active 0.2 mg PO BEDTIME hydrOXYzine HCl [Atarax] Med 10/06/16 21:00 Active 25 mg PO BEDTIME hydrOXYzine HCl [Vistaril] Med 10/06/16 00:00 Pending 25 mg .XX Q12HR PRN oxyCODONE Med 10/06/16 00:00 Active 5 mg PO Q4H PRN Sequential Compression Device [OM.PC] Per Unit Routine Oth 10/06/16 00:00 Ordered Resuscitation Status Routine Resus Stat 10/05/16 22:57 Ordered Medication Orders Acetaminophen (Tylenol) 650 mg PO Q4H PRN PRN Reason: Pain (Mild 1-3)/fever Albuterol (Proventil Neb Soln) 2.5 mg NEB Q4H PRN PRN Reason: Shortness Of Breath/wheezing Amlodipine Besylate (Norvasc) 10 mg PO DAILY [facility] Aspirin (Aspirin) 81 mg PO DAILY [facility] Atenolol (Tenormin) 25 mg PO BID [facility] Last Admin: 10/06/16 02:12 Dose: 25 mg Baclofen (Lioresal) 10 mg PO Q8H PRN PRN Reason: Pain Clonidine HCl (Catapres) 0.2 mg PO BEDTIME [facility] Clopidogrel Bisulfate (Plavix) 75 mg PO DAILY [facility] Docusate Sodium (Colace) 100 mg PO BID PRN PRN Reason: Constipation Doxepin HCl (Sinequan) 0 mg PO BEDTIME [facility] Gabapentin (Neurontin) 100 mg PO BEDTIME [facility] Guaifenesin/Codeine Phosphate (Robitussin Ac) 5 ml PO Q4H PRN PRN Reason: Cough Hydroxyzine HCl (Vistaril) 25 mg .XX Q12HR PRN PRN Reason: Itching Hydroxyzine HCl (Atarax) 25 mg PO BEDTIME [facility] Sodium Chloride (Normal Saline) 1,000 mls @ 75 mls/hr IV ASDIRECTED [facility] Last Admin: 10/05/16 21:39 Dose: 75 mls/hr Levofloxacin/Dextrose 500 mg/ (Premix) 100 mls @ 100 mls/hr IV Q24H [facility] Ceftriaxone Sodium 1 gm/ (Sodium Chloride) 50 mls @ 100 mls/hr IV Q24H [facility] Insulin Aspart (Novolog) 0 unit SUBCUT ASDIRECTED SHMUEL PRN Reason: Protocol Insulin Human Isoph/Insulin Regular (Novolin 70-30) 60 unit SUBCUT BID [facility] Last Admin: 10/06/16 01:59 Dose: Ipratropium [place] (Atrovent) 0.5 mg INH QID [facility] Levothyroxine Sodium (Synthroid) 125 mcg PO ACBREAKFAST [facility] Lorazepam (Ativan) 1 mg IV Q6H PRN PRN Reason: Nausea/Vomiting Losartan Potassium (Cozaar) 25 mg PO DAILY [facility] Magnesium Hydroxide (Milk Of Magnesia) 30 ml PO Q12H PRN PRN Reason: Constipation Morphine Sulfate (Morphine) 2 mg IVPUSH Q2H PRN PRN Reason: Pain (severe 7-10) Ondansetron HCl (Zofran Odt) 4 mg PO Q6H PRN PRN Reason: Nausea able to take PO Ondansetron HCl (Zofran) 4 mg IV Q4H PRN PRN Reason: Nausea/Vomiting Oxycodone HCl (Oxycodone) 5 mg PO Q4H PRN PRN Reason: Pain (moderate 4-6) Pantoprazole Sodium (Protonix Iv) 40 mg IVPUSH DAILY [facility] Tiotropium [place] (Spiriva Handihaler) 18 mcg INH DAILY [facility] Zolpidem Tartrate (Ambien) 5 mg PO BEDTIME PRN PRN Reason: Sleep Last Admin: 10/06/16 02:41 Dose: 5 mg Assessment/Plan Comment:: ASSESSMENT / PLAN -This is a 86 year old male present to ER with complaints of bladder infection and worsen cough and weakness. he decided to come to the hospital/ER for further care and treatment urinary tract infection copd, oxygen dependent CKD stage 3 -Admit to [address] [place] [address] for further monitoring -Telemetry -IV Levofloxin -IV Rocephin -Oxygen per nasal cannula -IV fluids for rehydration NS at 75 mL per hour -Advise to notify nurses of any chest pain or other symptoms -And a.m. labs: CBC, BMP, cholesterol panel, amylase and lipase diabetes type 2 -insulin 70/30 give 30 units subcut bid -low dose sliding scale coverage -blood glucose check before meals and at bedtime. Maintenance issues -Orders home meds: -Nutrition: Regular diet -Mathew catheter not indicated at this time -DVT: SCD -GI Prophylaxis; Protonix 40mg IV -referral OT and PT for strengthening CODE STATUS: DNR/DNI Admission status: Admit to [address] [place] [address] Admission justification. This patient will be admitted for inpatient services and is medically appropriate meeting medical necessity for inpatient admission as outlined in my documentation. I reasonably expect the patient will require inpatient services that span. Time over 2 midnights. I reasonably expect this patient to be discharged or transferred within 96 hours after admission to the [facility]. Disposition; Home with Son. Primary care provider:ELODIA Wright, Lis HOLLIDAY.
[2016-10-06] MEDS ORDERED: Ipratropium 0.02% 0.5 MG/2.5 ML Neb Soln INH SCH ×2 (06:00→11:00)
[2016-10-06] MEDS ORDERED: Levothyroxine 50 MCG Tab PO SCH (07:30)
[2016-10-06] MEDS: Insulin Aspart 100 Units/ML 3 ML Pen SUBCUT SCH (08:50)
[2016-10-06] MEDS: Aspirin 81 MG Tab.Chew PO SCH (08:56)
[2016-10-06] MEDS: Losartan 50 MG Tab PO SCH (08:56)
[2016-10-06] MEDS: Levothyroxine 100 MCG, Levothyroxine 25 MCG PO SCH ×2 (08:56)
[2016-10-06] MEDS: amLODIPine 10 MG Tab PO SCH (08:57)
[2016-10-06] MEDS: Clopidogrel 75 MG Tab PO SCH (08:57)
[2016-10-06] MEDS ORDERED: cefTRIAXone 1 GM in Sodium Chloride 0.9% 50 ML IV SCH ×2 (09:00→20:00)
[2016-10-06] MEDS ORDERED: Insulin NPH/Insulin Regular,Human 70-30 100 Units/ML 10 ML Vial SUBCUT SCH ×2 (09:00)
[2016-10-06] MEDS ORDERED: Pantoprazole 40 MG Vial IVPUSH SCH (09:00)
[2016-10-06] MEDS: Albuterol/Ipratropium 3.0-0.5 MG/3 ML Neb Soln NEB SCH ×3 (10:55→20:45)
[2016-10-06] MEDS: Acetaminophen 325 MG Tab PO PRN ×2 (11:12→16:48)
[2016-10-06] MEDS: Tiotropium Inhaler 18 MCG Inhalation Powder Cap Kit of 5 INH SCH (11:33)
--- NOTE | 2016-10-06 12:29 | CR ---
Portable chest Comparison: 01 August 2016. Findings: Shallow lung volumes are demonstrated. There is mild basilar atelectasis. The heart and va scular structures are stable. Impression: 1. Stable exam. No acute findings.
--- NOTE | 2016-10-06 13:44 | PCM.PN ---
- General Info Date of Service: 10/06/16 Functional Status: Reports: pain controlled, tolerating diet - Review of Systems General: Reports: Weakness Pulmonary: Reports: shortness of breath, cough Gastrointestinal: Reports: Abdominal pain Systems Review Comment:: No acute events since the time of admission. Occasionally coughing with mild sputum. No complaints of chest pain. Only minimally short of breath at this time but he has not been out of bed much. No complaints of abdominal pain or chest pain. No complaints of urinary frequency or urgency. No high fevers. - Patient Data Vitals - most recent: Last Vital Signs Temp 37.3 C 10/06/16 11:00 Pulse 65 10/06/16 11:00 Resp 20 10/06/16 11:00 BP 159/102 H 10/06/16 11:00 Pulse Ox 97 10/06/16 11:00 Weight - most recent: 90.265 kg I&O - last 24 hours: Intake & Output 10/05/16 10/06/16 10/06/16 22:59 06:59 14:59 Intake Total 2404 Output Total 800 775 Balance -800 1629 Lab Results last 24 hrs: Laboratory Results - last 24 hr 10/06/16 10/06/16 Range/Units 04:45 04:45 WBC 14.1 H (4.5-11.0) K/uL RBC 4.49 (4.30-5.90) M/uL Hgb 13.5 (12.0-15.0) g/dL Hct 39.9 L (40.0-54.0) % MCV 89 (80-98) fL MCH 30 (27-31) pg MCHC 34 (32-36) % Plt Count 283 (150-400) K/uL Neut % (Auto) 77 H (36-66) % Lymph % (Auto) 10 L (24-44) % Nash % (Auto) 11 H (2-6) % Eos % (Auto) 2 (2-4) % Baso % (Auto) 0 (0-1) % Sodium 143 (140-148) mmol/L Potassium 4.3 (3.6-5.2) mmol/L Chloride 105 (100-108) mmol/L Carbon Dioxide 27 (21-32) mmol/L Anion Gap 10.8 (5.0-14.0) mmol/L BUN 17 (7-18) mg/dL Creatinine 1.5 H (0.8-1.3) mg/dL Est Cr Clr Drug Dosing 34.27 mL/min Estimated GFR (MDRD) 45 L (>60) Glucose 143 H (74-106) mg/dL Calcium 8.6 (8.5-10.1) mg/dL Med Orders - Current: Current Medications Acetaminophen (Tylenol) 650 mg PO Q4H PRN PRN Reason: Pain (Mild 1-3)/fever Last Admin: 10/06/16 11:12 Dose: 650 mg Albuterol (Proventil Neb Soln) 2.5 mg NEB Q4H PRN PRN Reason: Shortness Of Breath/wheezing Albuterol/Ipratropium (Duoneb 3.0-0.5 Mg/3 Ml) 3 ml NEB QIDRT [facility] Last Admin: 10/06/16 10:55 Dose: 3 ml Amlodipine Besylate (Norvasc) 10 mg PO DAILY [facility] Last Admin: 10/06/16 08:57 Dose: 10 mg Aspirin (Aspirin) 81 mg PO DAILY [facility] Last Admin: 10/06/16 08:56 Dose: 81 mg Atenolol (Tenormin) 25 mg PO BID [facility] Last Admin: 10/06/16 08:57 Dose: 25 mg Baclofen (Lioresal) 10 mg PO Q8H PRN PRN Reason: Pain Clonidine HCl (Catapres) 0.2 mg PO BEDTIME [facility] Clopidogrel Bisulfate (Plavix) 75 mg PO DAILY [facility] Last Admin: 10/06/16 08:57 Dose: 75 mg Docusate Sodium (Colace) 100 mg PO BID PRN PRN Reason: Constipation Doxepin HCl (Sinequan) 0 mg PO BEDTIME [facility] Gabapentin (Neurontin) 100 mg PO BEDTIME [facility] Guaifenesin/Codeine Phosphate (Robitussin Ac) 5 ml PO Q4H PRN PRN Reason: Cough Hydroxyzine HCl (Vistaril) 25 mg IM Q12H PRN PRN Reason: Itching Hydroxyzine HCl (Atarax) 25 mg PO BEDTIME [facility] Levofloxacin/Dextrose 500 mg/ (Premix) 100 mls @ 100 mls/hr IV Q24H [facility] Ceftriaxone Sodium 1 gm/ (Sodium Chloride) 50 mls @ 100 mls/hr IV Q24H [facility] Insulin Aspart (Novolog) 0 unit SUBCUT ASDIRECTED [facility] PRN Reason: Protocol Last Admin: 10/06/16 08:50 Dose: 1 unit Insulin Human Isoph/Insulin Regular (Novolin 70-30) 60 unit SUBCUT BID [facility] Last Admin: 10/06/16 08:51 Dose: 60 units Levothyroxine Sodium 100 mcg/ (Levothyroxine Sodium 25 mcg) 125 mcg PO ACBREAKFAST [facility] Last Admin: 10/06/16 08:56 Dose: 125 mcg Lorazepam (Ativan) 1 mg IV Q6H PRN PRN Reason: Nausea/Vomiting Losartan Potassium (Cozaar) 25 mg PO DAILY [facility] Last Admin: 10/06/16 08:56 Dose: 25 mg Magnesium Hydroxide (Milk Of Magnesia) 30 ml PO Q12H PRN PRN Reason: Constipation Morphine Sulfate (Morphine) 2 mg IVPUSH Q2H PRN PRN Reason: Pain (severe 7-10) Ondansetron HCl (Zofran Odt) 4 mg PO Q6H PRN PRN Reason: Nausea able to take PO Ondansetron HCl (Zofran) 4 mg IV Q4H PRN PRN Reason: Nausea/Vomiting Oxycodone HCl (Oxycodone) 5 mg PO Q4H PRN PRN Reason: Pain (moderate 4-6) Tiotropium [place] (Spiriva Handihaler) 18 mcg INH DAILY [facility] Last Admin: 10/06/16 11:33 Dose: 18 mcg Zolpidem Tartrate (Ambien) 5 mg PO BEDTIME PRN PRN Reason: Sleep Last Admin: 10/06/16 02:41 Dose: 5 mg Discontinued Medications Dextrose/Water (Dextrose 50% In Water) 50 ml IVPUSH ONETIME PRN PRN Reason: Blood Glucose Sodium Chloride (Normal Saline) 1,000 mls @ 75 mls/hr IV ASDIRECTED [facility] Last Admin: 10/05/16 21:39 Dose: 75 mls/hr Levofloxacin/Dextrose 500 mg/ (Premix) 100 mls @ 100 mls/hr IV ONETIME ONE Stop: 10/05/16 22:59 Last Admin: 10/05/16 22:21 Dose: 100 mls/hr Ceftriaxone Sodium 1 gm/ (Sodium Chloride) 50 mls @ 100 mls/hr IV ONETIME ONE Stop: 10/05/16 23:17 Last Admin: 10/05/16 23:30 Dose: 100 mls/hr Ceftriaxone Sodium 1 gm/ (Sodium Chloride) 50 mls @ 100 mls/hr IV Q24H [facility] Insulin Human Isoph/Insulin Regular (Novolin 70-30) 60 unit SUBCUT BID [facility] Last Admin: 10/06/16 01:59 Dose: Not Given Ipratropium [place] (Atrovent) 0.5 mg INH QID [facility] Last Admin: 10/06/16 05:46 Dose: 0.5 mg Ipratropium [place] (Atrovent) 0.5 mg INH QIDRT [facility] Levothyroxine Sodium (Synthroid) 125 mcg PO ACBREAKFAST [facility] Pantoprazole Sodium (Protonix Iv) 40 mg IVPUSH DAILY@0730 [facility] Last Admin: 10/06/16 08:56 Dose: 40 mg - Exam Quality Assessment: supplemental oxygen General: alert, oriented, cooperative, no acute distress Neck: supple Lungs: Clear to auscultation, Normal respiratory effort, Other (prolonged expiratory phase) Cardiovascular: Regular Rate, Regular Rhythm Abdomen: soft, no distension, tenderness (mild generalized ) Extremities: no cyanosis, edema (mild bilateral ankle edema) Skin: warm, dry Psy/Mental Status: alert, normal affect - Problem List Review Problem List Initiated/Reviewed/Updated: Yes - My Orders Last 24 Hours: My Active Orders 10/06/16 10:07 RT Aerosol Therapy [RC] ASDIRECTED 10/06/16 11:00 Albuterol/Ipratropium [DuoNeb 3.0-0.5 MG/3 ML] 3 ml NEB QIDRT 10/06/16 13:41 Discontinue Telemetry Monitoring [Cardiac Monitoring Discontinue] [RC] Click to Edit Convert IV to Saline Lock [OM.PC] Routine 10/07/16 05:00 BASIC METABOLIC PANEL,BMP [CHEM] Timed CBC W/O DIFF,HEMOGRAM [HEME] Timed (1) - Plan Plan:: ASSESSMENT / PLAN Bronchitis versus possible subtle pneumonia - symptoms suggest respiratory infection though x-ray does not definitively identified a pneumonia. Cough has increased from baseline and he is more short of breath than usual with his COPD. Mild evidence for urinary tract infection though not convincing. No evidence for COPD exacerbation at this time. -Levofloxacin And ceftriaxone -Oxygen per nasal cannula -saline lock IV -Followup cultures -Supplemental oxygen COPD - fairly severe disease with oxygen dependence. No evidence for exacerbation at this time. -Continue medical management Diabetes mellitus, insulin-dependent - sugars running a little bit low last night and long-acting insulin was held. Sugars low/normal throughout the day. Planning to decrease his usual dosing mildly while hospitalized. -Continue 70/30 at reduced dose -Accu-Cheks Stage III chronic kidney disease - creatinine near baseline. Maintenance issues -Orders home meds: -Nutrition: Regular diet -Mathew catheter not indicated at this time -DVT: SCD -GI Prophylaxis; Protonix 40mg IV -referral OT and PT for strengthening Disposition - Home with Son. Jesús Luevano M.D.
[2016-10-06] MEDS: Insulin NPH/Insulin Regular,Human 70-30 100 Units/ML 10 ML Vial SUBCUT SCH (17:49)
[2016-10-06] MEDS: Codeine/guaiFENesin 100mg-10 MG/5 ML Syrup 10 ML Cup PO PRN (19:47)
[2016-10-06] MEDS: Gabapentin 100 MG Cap PO SCH (20:45)
[2016-10-06] MEDS: cloNIDine 0.1 MG Tab PO SCH (20:46)
[2016-10-06] MEDS: hydrOXYzine HCl 25 MG Tab PO SCH (20:48)
[2016-10-06] MEDS ORDERED: Doxepin 25 MG Cap PO SCH (21:00)
[2016-10-06] MEDS ORDERED: Levofloxacin/Dextrose 5%-Water 500 MG in Premix Bag 1 BAG IV SCH (21:00)
[2016-10-07] MEDS: Codeine/guaiFENesin 100mg-10 MG/5 ML Syrup 10 ML Cup PO PRN ×2 (02:00→12:39)
[2016-10-07] MEDS: Albuterol/Ipratropium 3.0-0.5 MG/3 ML Neb Soln NEB SCH ×4 (07:12→21:05)
[2016-10-07] MEDS: Insulin NPH/Insulin Regular,Human 70-30 100 Units/ML 10 ML Vial SUBCUT SCH ×2 (07:49→17:00)
[2016-10-07] MEDS: Levothyroxine 100 MCG, Levothyroxine 25 MCG PO SCH ×2 (07:50)
[2016-10-07] MEDS: Tiotropium Inhaler 18 MCG Inhalation Powder Cap Kit of 5 INH SCH (08:43)
[2016-10-07] MEDS: amLODIPine 10 MG Tab PO SCH (09:11)
[2016-10-07] MEDS: Clopidogrel 75 MG Tab PO SCH (09:12)
[2016-10-07] MEDS: Aspirin 81 MG Tab.Chew PO SCH (09:12)
[2016-10-07] MEDS: Losartan 50 MG Tab PO SCH (09:12)
[2016-10-07] MEDS: Atenolol 25 MG Tab PO SCH ×2 (09:12→21:58)
[2016-10-07] MEDS: Docusate Sodium 100 MG Cap PO PRN (09:18)
[2016-10-07] MEDS: Magnesium Hydroxide 400 MG/5 ML Susp 30 ML Cup PO PRN (09:18)
[2016-10-07] MEDS ORDERED: Doxepin 25 MG Cap PO SCH (12:06)
[2016-10-07] MEDS: Acetaminophen 325 MG Tab PO PRN ×2 (12:34→19:36)
--- NOTE | 2016-10-07 12:52 | PCM.PN ---
- General Info Date of Service: 10/07/16 Functional Status: Reports: pain controlled, tolerating diet, ambulating - Review of Systems General: Reports: Weakness Pulmonary: Reports: shortness of breath, cough Systems Review Comment:: no acute events overnight. Still a little bit short of breath but otherwise feeling better. Intermittent cough but not much sputum production. He has had a couple of episodes of feeling shaky and like he has palpitations. Vital signs and blood sugar have all been stable at the time. Symptoms seem to occur approximately one hour after nebulizer treatments. cultures have been negative so far. - Patient Data Vitals - most recent: Last Vital Signs Temp 37.0 C 10/07/16 11:00 Pulse 72 10/07/16 11:00 Resp 18 10/07/16 11:00 BP 137/66 10/07/16 11:00 Pulse Ox 92 L 10/07/16 11:00 Weight - most recent: 90.265 kg I&O - last 24 hours: Intake & Output 10/06/16 10/07/16 10/07/16 22:59 06:59 14:59 Intake Total 630 960 Output Total 250 400 450 Balance 380 -400 510 Lab Results last 24 hrs: Laboratory Results - last 24 hr 10/07/16 10/07/16 Range/Units 05:00 05:00 WBC 11.4 H (4.5-11.0) K/uL RBC 3.81 L (4.30-5.90) M/uL Hgb 11.3 L D (12.0-15.0) g/dL Hct 34.5 L (40.0-54.0) % MCV 91 (80-98) fL MCH 30 (27-31) pg MCHC 33 (32-36) % Plt Count 248 (150-400) K/uL Sodium 140 (140-148) mmol/L Potassium 3.9 (3.6-5.2) mmol/L Chloride 104 (100-108) mmol/L Carbon Dioxide 28 (21-32) mmol/L Anion Gap 8.1 (5.0-14.0) mmol/L BUN 20 H (7-18) mg/dL Creatinine 1.5 H (0.8-1.3) mg/dL Est Cr Clr Drug Dosing 34.19 mL/min Estimated GFR (MDRD) 45 L (>60) Glucose 103 (74-106) mg/dL Calcium 7.9 L (8.5-10.1) mg/dL Ramu Results last 24 hrs: Microbiology 10/06/16 15:25 Gram Stain - Final Sputum - Expectorated Med Orders - Current: Current Medications Acetaminophen (Tylenol) 650 mg PO Q4H PRN PRN Reason: Pain (Mild 1-3)/fever Last Admin: 10/07/16 12:34 Dose: 650 mg Albuterol (Proventil Neb Soln) 2.5 mg NEB Q4H PRN PRN Reason: Shortness Of Breath/wheezing Albuterol/Ipratropium (Duoneb 3.0-0.5 Mg/3 Ml) 3 ml NEB QIDRT [facility] Last Admin: 10/07/16 10:44 Dose: 3 ml Amlodipine Besylate (Norvasc) 10 mg PO DAILY [facility] Last Admin: 10/07/16 09:11 Dose: 10 mg Aspirin (Aspirin) 81 mg PO DAILY [facility] Last Admin: 10/07/16 09:12 Dose: 81 mg Atenolol (Tenormin) 25 mg PO BID [facility] Last Admin: 10/07/16 09:12 Dose: 25 mg Baclofen (Lioresal) 10 mg PO Q8H PRN PRN Reason: Pain Clonidine HCl (Catapres) 0.2 mg PO BEDTIME [facility] Last Admin: 10/06/16 20:46 Dose: 0.2 mg Clopidogrel Bisulfate (Plavix) 75 mg PO DAILY [facility] Last Admin: 10/07/16 09:12 Dose: 75 mg Docusate Sodium (Colace) 100 mg PO BID PRN PRN Reason: Constipation Last Admin: 10/07/16 09:18 Dose: 100 mg Doxepin HCl (Sinequan) 25 - 50 mg PO BEDTIME [facility] Gabapentin (Neurontin) 100 mg PO BEDTIME [facility] Last Admin: 10/06/16 20:45 Dose: 100 mg Guaifenesin/Codeine Phosphate (Robitussin Ac) 5 ml PO Q4H PRN PRN Reason: Cough Last Admin: 10/07/16 12:39 Dose: 5 ml Hydroxyzine HCl (Vistaril) 25 mg IM Q12H PRN PRN Reason: Itching Hydroxyzine HCl (Atarax) 25 mg PO BEDTIME [facility] Last Admin: 10/06/16 20:48 Dose: 25 mg Insulin Aspart (Novolog) 0 unit SUBCUT ASDIRECTED [facility] PRN Reason: Protocol Last Admin: 10/06/16 08:50 Dose: 1 unit Levothyroxine Sodium 100 mcg/ (Levothyroxine Sodium 25 mcg) 125 mcg PO ACBREAKFAST [facility] Last Admin: 10/07/16 07:50 Dose: 125 mcg Lorazepam (Ativan) 1 mg IV Q6H PRN PRN Reason: Nausea/Vomiting Losartan Potassium (Cozaar) 25 mg PO DAILY [facility] Last Admin: 10/07/16 09:12 Dose: 25 mg Magnesium Hydroxide (Milk Of Magnesia) 30 ml PO Q12H PRN PRN Reason: Constipation Last Admin: 10/07/16 09:18 Dose: 30 ml Morphine Sulfate (Morphine) 2 mg IVPUSH Q2H PRN PRN Reason: Pain (severe 7-10) Ondansetron HCl (Zofran Odt) 4 mg PO Q6H PRN PRN Reason: Nausea able to take PO Ondansetron HCl (Zofran) 4 mg IV Q4H PRN PRN Reason: Nausea/Vomiting Oxycodone HCl (Oxycodone) 5 mg PO Q4H PRN PRN Reason: Pain (moderate 4-6) Tiotropium [place] (Spiriva Handihaler) 18 mcg INH DAILY [facility] Last Admin: 10/07/16 08:43 Dose: 18 mcg Zolpidem Tartrate (Ambien) 5 mg PO BEDTIME PRN PRN Reason: Sleep Last Admin: 10/06/16 21:01 Dose: 5 mg Discontinued Medications Dextrose/Water (Dextrose 50% In Water) 50 ml IVPUSH ONETIME PRN PRN Reason: Blood Glucose Doxepin HCl (Sinequan) 0 mg PO BEDTIME [facility] Last Admin: 10/06/16 20:48 Dose: 50 mg Sodium Chloride (Normal Saline) 1,000 mls @ 75 mls/hr IV ASDIRECTED [facility] Last Admin: 10/05/16 21:39 Dose: 75 mls/hr Levofloxacin/Dextrose 500 mg/ (Premix) 100 mls @ 100 mls/hr IV ONETIME ONE Stop: 10/05/16 22:59 Last Admin: 10/05/16 22:21 Dose: 100 mls/hr Ceftriaxone Sodium 1 gm/ (Sodium Chloride) 50 mls @ 100 mls/hr IV ONETIME ONE Stop: 10/05/16 23:17 Last Admin: 10/05/16 23:30 Dose: 100 mls/hr Levofloxacin/Dextrose 500 mg/ (Premix) 100 mls @ 100 mls/hr IV Q24H [facility] Last Admin: 10/06/16 20:45 Dose: 100 mls/hr Ceftriaxone Sodium 1 gm/ (Sodium Chloride) 50 mls @ 100 mls/hr IV Q24H [facility] Ceftriaxone Sodium 1 gm/ (Sodium Chloride) 50 mls @ 100 mls/hr IV Q24H [facility] Last Admin: 10/06/16 19:48 Dose: 100 mls/hr Insulin Human Isoph/Insulin Regular (Novolin 70-30) 60 unit SUBCUT BID [facility] Last Admin: 10/06/16 01:59 Dose: Not Given Insulin Human Isoph/Insulin Regular (Novolin 70-30) 60 unit SUBCUT BID [facility] Last Admin: 10/06/16 08:51 Dose: 60 units Insulin Human Isoph/Insulin Regular (Novolin 70-30) 40 unit SUBCUT BIDAC [facility] Last Admin: 10/07/16 07:49 Dose: 40 units Ipratropium [place] (Atrovent) 0.5 mg INH QID [facility] Last Admin: 10/06/16 05:46 Dose: 0.5 mg Ipratropium [place] (Atrovent) 0.5 mg INH QIDRT [facility] Levothyroxine Sodium (Synthroid) 125 mcg PO ACBREAKFAST [facility] Pantoprazole Sodium (Protonix Iv) 40 mg IVPUSH DAILY@0730 [facility] Last Admin: 10/06/16 08:56 Dose: 40 mg - Exam Quality Assessment: supplemental oxygen General: alert, oriented, cooperative, no acute distress Neck: supple Lungs: Clear to auscultation, Normal respiratory effort. No: Wheezing Cardiovascular: Regular Rate, Regular Rhythm Abdomen: soft, no distension Extremities: no cyanosis, edema (mild pitting bilateral ankle edema) Skin: warm, dry Psy/Mental Status: alert, normal affect - Problem List Review Problem List Initiated/Reviewed/Updated: Yes - My Orders Last 24 Hours: My Active Orders 10/06/16 13:41 Convert IV to Saline Lock [OM.PC] Routine 10/07/16 16:30 Insulin NPH/Insulin Reg,Human [NovoLIN 70-30] 30 unit SUBCUT BIDAC 10/07/16 21:00 Levofloxacin [Levaquin] 250 mg PO Q48H Levofloxacin [Levaquin] 500 mg PO Q48H - Plan Plan:: ASSESSMENT / PLAN Bronchitis versus possible subtle pneumonia - clinically improving, cultures have been negative. Lungs are much better and clinically he is doing better today. He is nearly back to baseline as far as his respiratory status. He is weak but otherwise doing well. -Levofloxacin -Oxygen per nasal cannula -saline lock IV -Followup cultures -Supplemental oxygen COPD - fairly severe disease with oxygen dependence. No evidence for exacerbation at this time. -Continue medical management Diabetes mellitus, insulin-dependent - sugars still running a little bit low. Appetite seems to be improving. His son said that his sugars tend to run low in the evening after he takes 60 units in the morning. -Continue 70/30 with further dose reduction -Accu-Cheks Stage III chronic kidney disease - creatinine near baseline. Maintenance issues -Nutrition: Regular diet -DVT: SCD -GI Prophylaxis; PPI -referral OT and PT for strengthening Disposition - Home with Son, probably tomorrow Jesús Luevano M.D.
[2016-10-07] MEDS: oxyCODONE 5 MG Tab PO PRN ×2 (15:20→19:36)
[2016-10-07] MEDS: Insulin Aspart 100 Units/ML 3 ML Pen SUBCUT SCH ×2 (17:00→21:07)
[2016-10-07] MEDS ORDERED: Levofloxacin 250 MG Tab PO SCH (21:00)
[2016-10-07] MEDS ORDERED: Levofloxacin 500 MG Tab PO SCH (21:00)
[2016-10-07] MEDS: Zolpidem 5 MG Tab PO PRN (21:06)
[2016-10-07] MEDS: hydrOXYzine HCl 25 MG Tab PO SCH (21:06)
[2016-10-07] MEDS: Gabapentin 100 MG Cap PO SCH (21:06)
[2016-10-07] MEDS: cloNIDine 0.1 MG Tab PO SCH (21:06)
[2016-10-08] MEDS: Docusate Sodium 100 MG Cap PO PRN (05:28)
[2016-10-08] MEDS: Magnesium Hydroxide 400 MG/5 ML Susp 30 ML Cup PO PRN (05:28)
[2016-10-08] MEDS: Levothyroxine 100 MCG, Levothyroxine 25 MCG PO SCH ×2 (07:19)
[2016-10-08 07:24] VITALS: BP 104/68
[2016-10-08] MEDS: Insulin NPH/Insulin Regular,Human 70-30 100 Units/ML 10 ML Vial SUBCUT SCH (07:34)
[2016-10-08] MEDS: Albuterol/Ipratropium 3.0-0.5 MG/3 ML Neb Soln NEB SCH ×2 (08:02→10:47)
[2016-10-08] MEDS: Tiotropium Inhaler 18 MCG Inhalation Powder Cap Kit of 5 INH SCH (08:11)
[2016-10-08] MEDS: Atenolol 25 MG Tab PO SCH (08:46)
[2016-10-08] MEDS: Losartan 50 MG Tab PO SCH (08:46)
[2016-10-08] MEDS: Clopidogrel 75 MG Tab PO SCH (08:47)
[2016-10-08] MEDS: Aspirin 81 MG Tab.Chew PO SCH (08:47)
[2016-10-08] MEDS: amLODIPine 10 MG Tab PO SCH (08:47)
--- NOTE | 2016-10-08 11:34 | PCM.DCSUM1 ---
Discharge Summary - Hospital Course Brief History: 86-year-old male with history of diabetes mellitus with insulin dependence and oxygen dependent COPD who presented with cough, fever and shortness of breath. He was admitted for management of acute bronchitis. - Discharge Data Discharge Date: 10/08/16 Discharge Disposition: Home, Self-Care 01 Condition: Fair - Discharge Diagnosis/Problem(s) (1) COPD (chronic obstructive pulmonary disease) with acute bronchitis SNOMED Code(s): 135754803866502 ICD Code: J44.0 - CHRONIC OBSTRUCTIVE PULMON DISEASE W ACUTE LOWER RESP INFCT Status: Acute Priority: High (2) Weakness generalized SNOMED Code(s): 03935213 ICD Code: R53.1 - WEAKNESS Status: Acute Priority: High (3) Diabetes mellitus type 2 with complications SNOMED Code(s): 63644172, 55314650279790 ICD Code: E11.8 - TYPE 2 DIABETES MELLITUS WITH UNSPECIFIED COMPLICATIONS Status: Acute Priority: High Qualifiers: 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 OT Reason for Consult: Strengthening This query below is only for informational purposes and is not editable. PT Evaluation and Treatment [CONS] Routine Please Evaluate and Treat. PT Reason for Consult: Strengthening This query below is only for informational purposes and is not editable. Labs Pending at D/C: final results of the sputum culture - gram-negative daryl is currently growing in culture but identification is pending. Hospital Course: Fortunato presented to the emergency room with cough, fever and weakness. Workup in the emergency room was initially concerning for a possible urinary tract infection and he was admitted to the hospital. He was levofloxacin and ceftriaxone to cover some of the ulnar organisms with his increased cough and increased hypoxia from baseline. There is no evidence for sepsis. Over the next couple of days he showed clinical improvement with his respiratory status. His hypoxia has been slowly improving and has returned to baseline. He is back to his usual amount of supplemental oxygen. His urine culture has not grown bacteria and I suspect that there was no acute cystitis present on admission despite a slightly abnormal urinalysis. His sputum culture is growing a gram-negative daryl but final identification is still pending after 3 days of hospitalization. Because he has shown clinical improvement with only levofloxacin I believe it's reasonable to continue this as his outpatient management. He has oxygen at home. He has nebulizers at home. He has been up and walking around his room without significant limitation. I will contact him if his sputum culture grows and organism resistant to levofloxacin. He did not feel that home care would be beneficial at this time. Also during the hospital stay we closely monitored his blood sugars. He was not eating well to initially held his evening dose of long-acting insulin in the next day reduced both of his doses by 30%. He continued to have borderline low blood sugars so I further reduced his insulin to one half of his prescribed dose. Blood sugars were better controlled after this change. I did encourage him to reduce his home insulin dosing. He will be discussing this with his primary care tomorrow. - Patient Instructions Diet: Diabetic Diet Activity: As Tolerated Showering/Bathing: May Shower Notify Provider of: Fever, Increased Pain, Nausea and/or Vomiting Other/Special Instructions: 1. You were in the hospital for management of acute bronchitis. We did not determine the cause of bacteria which have been improving with levofloxacin. I recommend that you take 2 additional doses of the medication. You should take this medication at bedtime on , October 09 and also on Thursday, October 11 at that time. Your antibiotic treatment will be finished after these doses. You may use Robitussin or a similar over-the- counter medication to help if you have a residual cough. 2. I would recommend that you change your insulin dosing to 30 units twice daily. You may need to adjust your morning dose slightly if her evening blood sugars are running high. This is the dose that we used while you were in the hospital and it worked fairly well for good blood sugar control. 3. Please continue your home medications as previously prescribed. 4. Please seek medical attention if you develop fever greater than 101, have some worsening of your shortness of breath , you develop chest pain or you have persistent vomiting and/or diarrhea. - Discharge Plan Prescriptions/Med Rec: Levofloxacin 750 mg PO Q48H #2 tablet Zolpidem [Ambien] 5 mg PO BEDTIME PRN #15 tablet PRN Reason: Sleep Home Medications: Home Meds *Urea 10% Lotion 1 dose TOP Q8H PRN 06/28/15 [History] Aspirin 81 mg PO DAILY 06/28/15 [History] Atenolol 25 mg PO BID 06/28/15 [History] Cholecalciferol (Vitamin D3) [Vitamin D3] 1,000 units PO BID 06/28/15 [History] Ranitidine [Zantac] 150 mg PO DAILY 06/28/15 [History] amLODIPine Besylate [Amlodipine Besylate] 10 mg PO DAILY 06/28/15 [History] atorvaSTATin [Lipitor] 40 mg PO BEDTIME 06/28/15 [History] cloNIDine HCl [Clonidine HCl] 0.2 mg PO BEDTIME 06/28/15 [History] Levothyroxine 125 mcg PO ACBREAKFAST 01/03/16 [History] Tiotropium [Spiriva HandiHaler] 18 mcg PO DAILY 02/24/16 [History] Baclofen 10 mg PO Q8H PRN 04/17/16 [History] Losartan [Cozaar] 25 mg PO DAILY 04/17/16 [History] hydrOXYzine HCl [hydrOXYzine] 25 mg PO Q12HR PRN 04/17/16 [History] *O2 1.5 l INH ASDIRECTED 04/24/16 [History] Clopidogrel [Plavix] 1 tab PO DAILY 08/01/16 [History] Doxepin [SINEquan] 1 - 2 cap PO BEDTIME 08/01/16 [History] Gabapentin [Neurontin] 1 tab PO BEDTIME 08/01/16 [History] Insulin NPH/Insulin Reg,Human [Novolin 70-30] 60 units SUBCUT BID 08/01/16 [ History] Ipratropium [place] 1 dose INH QID 08/01/16 [History] guaiFENesin/Codeine Phosphate [Guaiatussin AC Liquid] 5 ml PO Q4HR PRN 08/01/16 [History] hydrOXYzine HCl [hydrOXYzine] 1 tab PO BEDTIME 08/01/16 [History] Levofloxacin 750 mg PO Q48H #2 tablet 10/08/16 [Rx] Zolpidem [Ambien] 5 mg PO BEDTIME PRN #15 tablet 10/08/16 [Rx] Patient Handouts: Levofloxacin tablets, Acute Bronchitis Referrals: PCP,None [Primary Care Provider] - (f/u as scheduled tomorrow ) - Discharge Summary/Plan Comment DC Time >30 min.: No (25) - Patient Data Vitals - Most Recent: Last Vital Signs Temp 36.7 C 10/08/16 07:00 Pulse 62 10/08/16 10:49 Resp 18 10/08/16 07:00 BP 104/68 10/08/16 08:47 Pulse Ox 93 L 10/08/16 10:49 Weight - Most Recent: 90.265 kg I&O - Last 24 hours: Intake & Output 10/07/16 10/08/16 10/08/16 22:59 06:59 14:59 Intake Total 240 240 360 Output Total 600 500 200 Balance -360 -260 160 KENNETH Results - Last 24 hrs: Microbiology 10/06/16 15:25 Gram Stain - Final Sputum - Expectorated Respiratory Culture - Preliminary Med Orders - Current: Current Medications Acetaminophen (Tylenol) 650 mg PO Q4H PRN PRN Reason: Pain (Mild 1-3)/fever Last Admin: 10/07/16 19:36 Dose: 650 mg Albuterol (Proventil Neb Soln) 2.5 mg NEB Q4H PRN PRN Reason: Shortness Of Breath/wheezing Albuterol/Ipratropium (Duoneb 3.0-0.5 Mg/3 Ml) 3 ml NEB QIDRT [facility] Last Admin: 10/08/16 10:47 Dose: 3 ml Amlodipine Besylate (Norvasc) 10 mg PO DAILY [facility] Last Admin: 10/08/16 08:47 Dose: 10 mg Aspirin (Aspirin) 81 mg PO DAILY [facility] Last Admin: 10/08/16 08:47 Dose: 81 mg Atenolol (Tenormin) 25 mg PO BID [facility] Last Admin: 10/08/16 08:46 Dose: 25 mg Baclofen (Lioresal) 10 mg PO Q8H PRN PRN Reason: Pain Clonidine HCl (Catapres) 0.2 mg PO BEDTIME [facility] Last Admin: 10/07/16 21:06 Dose: 0.2 mg Clopidogrel Bisulfate (Plavix) 75 mg PO DAILY [facility] Last Admin: 10/08/16 08:47 Dose: 75 mg Docusate Sodium (Colace) 100 mg PO BID PRN PRN Reason: Constipation Last Admin: 10/08/16 05:28 Dose: 100 mg Doxepin HCl (Sinequan) 25 - 50 mg PO BEDTIME [facility] Last Admin: 10/07/16 21:06 Dose: 25 mg Gabapentin (Neurontin) 100 mg PO BEDTIME [facility] Last Admin: 10/07/16 21:06 Dose: 100 mg Guaifenesin/Codeine Phosphate (Robitussin Ac) 5 ml PO Q4H PRN PRN Reason: Cough Last Admin: 10/07/16 12:39 Dose: 5 ml Hydroxyzine HCl (Vistaril) 25 mg IM Q12H PRN PRN Reason: Itching Hydroxyzine HCl (Atarax) 25 mg PO BEDTIME [facility] Last Admin: 10/07/16 21:06 Dose: 25 mg Insulin Aspart (Novolog) 0 unit SUBCUT ASDIRECTED [facility] PRN Reason: Protocol Last Admin: 10/07/16 21:07 Dose: 1 unit Insulin Human Isoph/Insulin Regular (Novolin 70-30) 30 unit SUBCUT BIDAC [facility] Last Admin: 10/08/16 07:34 Dose: 30 units Levofloxacin (Levaquin) 500 mg PO Q48H [facility] Last Admin: 10/07/16 21:06 Dose: 500 mg Levofloxacin (Levaquin) 250 mg PO Q48H [facility] Last Admin: 10/07/16 21:06 Dose: 250 mg Levothyroxine Sodium 100 mcg/ (Levothyroxine Sodium 25 mcg) 125 mcg PO ACBREAKFAST [facility] Last Admin: 10/08/16 07:19 Dose: 125 mcg Lorazepam (Ativan) 1 mg IV Q6H PRN PRN Reason: Nausea/Vomiting Losartan Potassium (Cozaar) 25 mg PO DAILY [facility] Last Admin: 10/08/16 08:46 Dose: 25 mg Magnesium Hydroxide (Milk Of Magnesia) 30 ml PO Q12H PRN PRN Reason: Constipation Last Admin: 10/08/16 05:28 Dose: 30 ml Morphine Sulfate (Morphine) 2 mg IVPUSH Q2H PRN PRN Reason: Pain (severe 7-10) Ondansetron HCl (Zofran Odt) 4 mg PO Q6H PRN PRN Reason: Nausea able to take PO Ondansetron HCl (Zofran) 4 mg IV Q4H PRN PRN Reason: Nausea/Vomiting Oxycodone HCl (Oxycodone) 5 mg PO Q4H PRN PRN Reason: Pain (moderate 4-6) Last Admin: 10/07/16 19:36 Dose: 5 mg Tiotropium [place] (Spiriva Handihaler) 18 mcg INH DAILY [facility] Last Admin: 10/08/16 08:11 Dose: 18 mcg Zolpidem Tartrate (Ambien) 5 mg PO BEDTIME PRN PRN Reason: Sleep Last Admin: 10/07/16 21:06 Dose: 5 mg Discontinued Medications Dextrose/Water (Dextrose 50% In Water) 50 ml IVPUSH ONETIME PRN PRN Reason: Blood Glucose Doxepin HCl (Sinequan) 0 mg PO BEDTIME [facility] Last Admin: 10/06/16 20:48 Dose: 50 mg Sodium Chloride (Normal Saline) 1,000 mls @ 75 mls/hr IV ASDIRECTED [facility] Last Admin: 10/05/16 21:39 Dose: 75 mls/hr Levofloxacin/Dextrose 500 mg/ (Premix) 100 mls @ 100 mls/hr IV ONETIME ONE Stop: 10/05/16 22:59 Last Admin: 10/05/16 22:21 Dose: 100 mls/hr Ceftriaxone Sodium 1 gm/ (Sodium Chloride) 50 mls @ 100 mls/hr IV ONETIME ONE Stop: 10/05/16 23:17 Last Admin: 10/05/16 23:30 Dose: 100 mls/hr Levofloxacin/Dextrose 500 mg/ (Premix) 100 mls @ 100 mls/hr IV Q24H [facility] Last Admin: 10/06/16 20:45 Dose: 100 mls/hr Ceftriaxone Sodium 1 gm/ (Sodium Chloride) 50 mls @ 100 mls/hr IV Q24H [facility] Ceftriaxone Sodium 1 gm/ (Sodium Chloride) 50 mls @ 100 mls/hr IV Q24H [facility] Last Admin: 10/06/16 19:48 Dose: 100 mls/hr Insulin Human Isoph/Insulin Regular (Novolin 70-30) 60 unit SUBCUT BID [facility] Last Admin: 10/06/16 01:59 Dose: Not Given Insulin Human Isoph/Insulin Regular (Novolin 70-30) 60 unit SUBCUT BID [facility] Last Admin: 10/06/16 08:51 Dose: 60 units Insulin Human Isoph/Insulin Regular (Novolin 70-30) 40 unit SUBCUT BIDAC [facility] Last Admin: 10/07/16 07:49 Dose: 40 units Ipratropium [place] (Atrovent) 0.5 mg INH QID [facility] Last Admin: 10/06/16 05:46 Dose: 0.5 mg Ipratropium [place] (Atrovent) 0.5 mg INH QIDRT [facility] Levothyroxine Sodium (Synthroid) 125 mcg PO ACBREAKFAST [facility] Pantoprazole Sodium (Protonix Iv) 40 mg IVPUSH DAILY@0730 [facility] Last Admin: 10/06/16 08:56 Dose: 40 mg *Q Meaningful Use (DIS) - VTE *Q VTE Criteria *Q: - Stroke *Q Stroke Criteria *Q: - AMI *Q AMI Criteria *Q:
[2016-10-08] MEDS: Insulin Aspart 100 Units/ML 3 ML Pen SUBCUT SCH (12:14)
== END 2016-10-08 13:45 | disposition home or self-care (01) | DRG 192 ==
LOC: JP.ED 20:32 → JP.MS 22:55
PROVIDERS: ADMIT Hospitalist; ATTEND Internal Medicine
DX: J44.0 Chronic obstructive pulmonary disease with (acute) lower respiratory infection (principal); J20.9 Acute bronchitis, unspecified; I12.9 Hypertensive chronic kidney disease with stage 1 through stage 4 chronic kidney disease, or unspecified chronic kidney disease; Z99.81 Dependence on supplemental oxygen; E11.22 Type 2 diabetes mellitus with diabetic chronic kidney disease; N18.3 Chronic kidney disease, stage 3 (moderate); Z66 Do not resuscitate; E03.9 Hypothyroidism, unspecified; Z87.891 Personal history of nicotine dependence; Z79.4 Long term (current) use of insulin; R09.02 Hypoxemia; Z86.73 Personal history of transient ischemic attack (TIA), and cerebral infarction without residual deficits; M19.90 Unspecified osteoarthritis, unspecified site; M54.9 Dorsalgia, unspecified; G89.29 Other chronic pain; Z87.01 Personal history of pneumonia (recurrent); E78.00 Pure hypercholesterolemia, unspecified; H91.90 Unspecified hearing loss, unspecified ear; H54.7 Unspecified visual loss; Z87.440 Personal history of urinary (tract) infections; Z79.82 Long term (current) use of aspirin; Z88.1 Allergy status to other antibiotic agents; Z88.0 Allergy status to penicillin; Z88.8 Allergy status to other drugs, medicaments and biological substances
CPT/HCPCS: 36415; 71010 ×2; 80053; 81001; 82150; 83605; 83690; 83735; 83880; 84443; 84484; 85025; 85610; 87040 ×2; 93005; 96361; 96365; 99285; J1956; J7040; 80048; 82962; 85027; 87070; 87077; 87186; 87205; 93010; 94640-76; 96367; 97110-GO; 97110-GP; 97162-GP; 97165-GO; 97530-GP; A9270-GY; C9113; J0696; J7050; J7620

== ENCOUNTER 2016-10-08 21:59 | Observation (INO) | payer MEDICARE, OTHER, MEDICAID ==
--- NOTE | 2016-10-08 22:24 | EDM.PDOC ---
ED HPI GENERAL MEDICAL PROBLEM - General Chief Complaint: Respiratory Problem Stated Complaint: [facility] Time Seen by Provider: 10/08/16 22:03 Source of Information: Reports: Patient, Family History Limitations: Reports: No limitations - History of Present Illness INITIAL COMMENTS - FREE TEXT/NARRATIVE: History of present illness: [This 86-year-old me porras was just discharged earlier today and came in by ambulance. His son states that he asked for the embolus to be called he was agitated and having some respiratory difficulty. 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 My impression is that is getting harder and her for the son to continue to take care of them and she is to have home. He has been at [facility] before in its the son is wishing that he could be admitted there for some rehabilitation and strengthening and I think that he also needs a brain from caring for his dad. In route he received a DuoNeb treatment and he admits that that helped his breathing problem and so in the ER he actually feels shortness of breath but feels that he needs to be in the hospital and is afraid to return home.] Review of systems: As per history of present illness and below otherwise all systems reviewed and negative. Past medical history: As per history of present illness and as reviewed below otherwise noncontributory. Surgical history: As per history of present illness and as reviewed below otherwise noncontributory. Social history: No reported history of drug or alcohol abuse. Family history: As per history of present illness and as reviewed below otherwise noncontributory. Physical exam: HEENT: Atraumatic, normocephalic, pupils reactive, negative for conjunctival pallor or scleral icterus, mucous membranes moist, throat clear, neck supple, nontender, trachea midline. Lungs: Clear to auscultation, breath sounds equal bilaterally Heart: S1S2, regular, negative for clicks, rubs, or JVD. Abdomen: Soft, nondistended, nontender. Pelvis: Stable nontender. Genitourinary: Deferred. Rectal: Deferred. Extremities: Atraumatic, negative for cords or calf pain. Neurovascular unremarkable. Neuro: Awake, alert, oriented. Exam nonfocal. Diagnostics: [] Therapeutics: [] Impression: [Generalized weakness and inability to care for self Episodic delirium] Plan: [Patient will be admitted for observation child welfare social worker will be contacted] Definitive disposition and diagnosis as appropriate pending reevaluation and review of above. - Related Data Allergies Allergy/AdvReac Type Severity Reaction Status Date / Time amoxicillin Allergy Rash Verified 10/05/16 20:51 insulin glargine, human Allergy Cannot Verified 10/05/16 20:51 recombin. a Remember [From Lantus] Penicillins Allergy Rash Verified 10/05/16 20:51 lisinopril AdvReac Cough Verified 10/05/16 20:51 Home Meds: Home Meds *Urea 10% Lotion 1 dose TOP Q8H PRN 06/28/15 [History] Aspirin 81 mg PO DAILY 06/28/15 [History] Atenolol 25 mg PO BID 06/28/15 [History] Cholecalciferol (Vitamin D3) [Vitamin D3] 1,000 units PO BID 06/28/15 [History] Ranitidine [Zantac] 150 mg PO DAILY 06/28/15 [History] amLODIPine Besylate [Amlodipine Besylate] 10 mg PO DAILY 06/28/15 [History] atorvaSTATin [Lipitor] 40 mg PO BEDTIME 06/28/15 [History] cloNIDine HCl [Clonidine HCl] 0.2 mg PO BEDTIME 06/28/15 [History] Levothyroxine 125 mcg PO ACBREAKFAST 01/03/16 [History] Tiotropium [Spiriva HandiHaler] 18 mcg PO DAILY 02/24/16 [History] Baclofen 10 mg PO Q8H PRN 04/17/16 [History] Losartan [Cozaar] 25 mg PO DAILY 04/17/16 [History] hydrOXYzine HCl [hydrOXYzine] 25 mg PO Q12HR PRN 04/17/16 [History] *O2 1.5 l INH ASDIRECTED 04/24/16 [History] Clopidogrel [Plavix] 1 tab PO DAILY 08/01/16 [History] Doxepin [SINEquan] 1 - 2 cap PO BEDTIME 08/01/16 [History] Gabapentin [Neurontin] 1 tab PO BEDTIME 08/01/16 [History] Insulin NPH/Insulin Reg,Human [Novolin 70-30] 60 units SUBCUT BID 08/01/16 [ History] Ipratropium [place] 1 dose INH QID 08/01/16 [History] guaiFENesin/Codeine Phosphate [Guaiatussin AC Liquid] 5 ml PO Q4HR PRN 08/01/16 [History] hydrOXYzine HCl [hydrOXYzine] 1 tab PO BEDTIME 08/01/16 [History] Levofloxacin 750 mg PO Q48H #2 tablet 10/08/16 [Rx] Zolpidem [Ambien] 5 mg PO BEDTIME PRN #15 tablet 10/08/16 [Rx] Past Medical History HEENT History: Reports: Allergic rhinitis, Cataract, Hard of hearing, Impaired vision, Sinusitis Cardiovascular History: Reports: Aneurysm, High cholesterol, Hypertension, Other (see below) Other Cardiovascular History: 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 Uses 3 liters of O2. Gastrointestinal History: Reports: GERD Genitourinary History: Reports: Diabetic nephropathy, Prostate disorder, Urinary incontinence, UTI, recurrent Other Genitourinary History: known UTI Musculoskeletal History: Reports: Arthritis, Back pain, chronic, Other (see below) Other Musculoskeletal History: "sciatica Neurological History: Reports: CVA, Head trauma, Neuropathy, diabetic, Seizure, TIA, Other (see below) Other Neuro History: aneurysm 1999. Psychiatric History: Reports: Anxiety, Depression Endocrine/Metabolic History: Reports: Diabetes, type II, Hypothyroidism - Infectious Disease History Infectious Disease History: Reports: Chicken pox, Influenza - Past Surgical History HEENT Surgical History: Reports: Cataract surgery, Oral surgery, Tonsillectomy GI Surgical History: Reports: Cholecystectomy Social & Family History - Family History Family Medical History: Unobtainable - Tobacco Use Smoking Status *Q: Never Smoker Years of Tobacco use: 12 Packs/Tins Daily: 1 Used Tobacco, but Quit: No Month Tobacco Last Used: 1995 Second Hand Smoke Exposure: No - Caffeine Use Caffeine Use: Reports: Coffee, Tea - Recreational Drug Use Recreational Drug Use: No - Living Situation & Occupation Occupation: disabled (lives with his Son in [place], [place].) ED ROS GENERAL - Review of Systems Review Of Systems: ROS reveals no pertinent complaints other than HPI. ED EXAM, GENERAL - Physical Exam Exam: See Below Course - Vital Signs Last Recorded V/S: Last Vital Signs Temp 37.1 C 10/08/16 22:05 Pulse 75 10/08/16 22:05 Resp 20 10/08/16 22:05 BP 147/51 H 10/08/16 22:05 Pulse Ox 95 10/08/16 22:05 Departure - Departure Time of Disposition: 22:25 Disposition: Admitted As Inpatient 68 Condition: fair Clinical Impression: Generalized weakness, Delirium due to general medical condition - Discharge Information Forms: ED Department Discharge
[2016-10-08] MEDS ORDERED: hydrOXYzine HCl 50 MG/ML SDV PRN (22:52)
[2016-10-08] MEDS ORDERED: Morphine 2 MG/ML Syringe IVPUSH PRN (22:52)
[2016-10-08] MEDS ORDERED: Acetaminophen 325 MG Tab PO PRN (22:52)
[2016-10-08] MEDS ORDERED: Zolpidem 5 MG Tab PO PRN ×2 (22:52)
[2016-10-08] MEDS ORDERED: Codeine/guaiFENesin 100mg-10 MG/5 ML Syrup 10 ML Cup PO PRN (22:52)
[2016-10-08] MEDS ORDERED: oxyCODONE 5 MG Tab PO PRN (22:52)
[2016-10-08] MEDS ORDERED: Polyethylene Glycol 3350 Powder 17 GM Packet PO PRN (22:52)
[2016-10-08] MEDS ORDERED: hydrOXYzine HCl 25 MG Tab PO SCH (22:52)
[2016-10-08] MEDS ORDERED: LORazepam 2 MG/ML MDV IV PRN (22:52)
[2016-10-08] MEDS ORDERED: Ondansetron 4 MG Tab.DIS PO PRN (22:52)
[2016-10-08] MEDS ORDERED: OXYGEN INH SCH (22:52)
[2016-10-08] MEDS ORDERED: Baclofen 10 MG Tab PO PRN (22:52)
[2016-10-08] MEDS ORDERED: Insulin Aspart 100 Units/ML 3 ML Pen SUBCUT SCH (22:52)
[2016-10-08] MEDS ORDERED: Magnesium Hydroxide 400 MG/5 ML Susp 30 ML Cup PO PRN (22:52)
--- NOTE | 2016-10-08 23:26 | PCM.HP ---
H&P History of Present Illness - General Date of Service: 10/08/16 Admit Problem/Dx: Admission Diagnosis/Problem Admission Diagnosis/Problem Weakness Source of Information: Patient, Family (Son) History Limitations: Reports: No limitations - History of Present Illness Initial Comments - Free Text/Narative: not feeling well, call EMS to transport to Hospital; this is a 86 y/o male present to the ER for evaluation of symptoms, he was discharge from [address] [place] [address] at 17:17 today. While at home, ate supper, took evening medications at 5: 30 pm. he denies any nausea, vomiting, chest pain, shortness of breath. He does report his head feels hot, Son is concerned of his vascular dementia, past brain blood clot in Jan 2016 and TIA. Son is requesting Care Home placement for weakness. will do Head CT to evaluation for any new changes to brain. will admit to [address] [place] [address] for Care Home Placement. If possible admission to [facility] or [facility] in [place]. Onset of Symptoms: Reports: gradual Location: Reports: generalized (weakness) Improves with: Reports: Medication (had one nebulizer at home) Worsens with: Reports: None - Related Data Allergies/Adverse Reactions: Allergies Allergy/AdvReac Type Severity Reaction Status Date / Time amoxicillin Allergy Rash Verified 10/05/16 20:51 insulin glargine, human Allergy Cannot Verified 10/05/16 20:51 recombin. a Remember [From Lantus] Penicillins Allergy Rash Verified 10/05/16 20:51 lisinopril AdvReac Cough Verified 10/05/16 20:51 Home Medications: Home Meds *Urea 10% Lotion 1 dose TOP Q8H PRN 06/28/15 [History] Aspirin 81 mg PO DAILY 06/28/15 [History] Atenolol 25 mg PO BID 06/28/15 [History] Cholecalciferol (Vitamin D3) [Vitamin D3] 1,000 units PO BID 06/28/15 [History] Ranitidine [Zantac] 150 mg PO DAILY 06/28/15 [History] amLODIPine Besylate [Amlodipine Besylate] 10 mg PO DAILY 06/28/15 [History] atorvaSTATin [Lipitor] 40 mg PO BEDTIME 06/28/15 [History] cloNIDine HCl [Clonidine HCl] 0.2 mg PO BEDTIME 06/28/15 [History] Levothyroxine 125 mcg PO ACBREAKFAST 01/03/16 [History] Tiotropium [Spiriva HandiHaler] 18 mcg PO DAILY 02/24/16 [History] Baclofen 10 mg PO Q8H PRN 04/17/16 [History] Losartan [Cozaar] 25 mg PO DAILY 04/17/16 [History] hydrOXYzine HCl [hydrOXYzine] 25 mg PO Q12HR PRN 04/17/16 [History] *O2 1.5 l INH ASDIRECTED 04/24/16 [History] Clopidogrel [Plavix] 1 tab PO DAILY 08/01/16 [History] Doxepin [SINEquan] 1 - 2 cap PO BEDTIME 08/01/16 [History] Gabapentin [Neurontin] 1 tab PO BEDTIME 08/01/16 [History] Insulin NPH/Insulin Reg,Human [Novolin 70-30] 60 units SUBCUT BID 08/01/16 [ History] Ipratropium [place] 1 dose INH QID 08/01/16 [History] guaiFENesin/Codeine Phosphate [Guaiatussin AC Liquid] 5 ml PO Q4HR PRN 08/01/16 [History] hydrOXYzine HCl [hydrOXYzine] 1 tab PO BEDTIME 08/01/16 [History] Levofloxacin 750 mg PO Q48H #2 tablet 10/08/16 [Rx] Zolpidem [Ambien] 5 mg PO BEDTIME PRN #15 tablet 10/08/16 [Rx] Past Medical History HEENT History: Reports: Allergic rhinitis, Cataract, Hard of hearing, Impaired vision, Sinusitis Cardiovascular History: Reports: Aneurysm, High cholesterol, Hypertension, Other (see below) Other Cardiovascular History: 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 Uses 3 liters of O2. Gastrointestinal History: Reports: GERD Genitourinary History: Reports: Diabetic nephropathy, Prostate disorder, Urinary incontinence, UTI, recurrent Other Genitourinary History: known UTI Musculoskeletal History: Reports: Arthritis, Back pain, chronic, Other (see below) Other Musculoskeletal History: "sciatica Neurological History: Reports: CVA, Head trauma, Neuropathy, diabetic, Seizure, TIA, Other (see below) Other Neuro History: aneurysm 1999. Psychiatric History: Reports: Anxiety, Depression Endocrine/Metabolic History: Reports: Diabetes, type II, Hypothyroidism - Infectious Disease History Infectious Disease History: Reports: Chicken pox, Influenza - Past Surgical History HEENT Surgical History: Reports: Cataract surgery, Oral surgery, Tonsillectomy GI Surgical History: Reports: Cholecystectomy Social & Family History - Family History Family Medical History: Unobtainable - Tobacco Use Smoking Status *Q: Former Smoker Years of Tobacco use: 50 Packs/Tins Daily: 1 Used Tobacco, but Quit: Yes Month Tobacco Last Used: 1997 Second Hand Smoke Exposure: No - Caffeine Use Caffeine Use: Reports: Coffee - Recreational Drug Use Recreational Drug Use: No - Living Situation & Occupation Occupation: disabled (lives with his Son in [place], [place].) H&P Review of Systems - Review of Systems: Review Of Systems: See Below General: Reports: weakness HEENT: Reports: no symptoms Pulmonary: Reports: Cough (chronic) Gastrointestinal: Reports: No symptoms Genitourinary: Reports: no symptoms, other (current treatment for UTI with Levofloxin 750mg po every 48hours. next due 10/09/16 pm) Musculoskeletal: Reports: no symptoms Skin: Reports: no symptoms Psychiatric: Reports: hallucinations (visual) (intermittently sees unknown people and who . ) Neurological: Reports: Pre-Existing Deficit Hematologic/Lymphatic: Reports: no symptoms Immunologic: Reports: no symptoms Exam - Exam Exam: See Below - Vital Signs Vital Signs: Last Vital Signs Temp 36.8 C 10/08/16 22:52 Pulse 82 10/08/16 22:52 Resp 20 10/08/16 22:52 BP 119/54 L 10/08/16 22:52 Pulse Ox 91 L 10/08/16 22:52 Weight: 91.989 kg - Exam Quality Assessment: supplemental oxygen General: alert, oriented, 4 HEENT: PERRLA, Hearing intact, Mucosa moist & pink, Nares patent, Normal nasal septum, Posterior pharynx clear, Conjunctiva clear, EOMI, EACs clear, TMs clear Neck: supple, trachea midline, 2 Lungs: Clear to auscultation, Normal respiratory effort Cardiovascular: regular rate, regular rhythm Abdomen: Normal Bowel Sounds, Soft (Male) Exam: Deferred Rectal (Males) Exam: Deferred Back Exam: normal inspection, full range of motion, NT Extremities: 3, normal inspection, 10 Skin: warm, dry, intact Neurological: cranial nerves intact, reflexes equal bilateral Neuro Extensive - Mental Status: alert, oriented x3, normal mood/affect, normal cognition Neuro Extensive - Motor, Sensory, Reflexes: normal reflexes Psychiatric: alert, normal affect, normal mood *Q Meaningful Use (ADM) - VTE *Q VTE Criteria *Q: - Stroke *Q Stroke Criteria *Q: - AMI *Q AMI Criteria *Q: - Problem List (1) Delirium due to general medical condition SNOMED Code(s): 7310572 ICD Code: F05 - DELIRIUM DUE TO KNOWN PHYSIOLOGICAL CONDITION Status: Acute Priority: Medium Current Visit: Yes (2) Generalized weakness SNOMED Code(s): 87127965 ICD Code: R53.1 - WEAKNESS Status: Acute Priority: Medium Current Visit : Yes (3) COPD (chronic obstructive pulmonary disease) with acute bronchitis SNOMED Code(s): 142212626809495 ICD Code: J44.0 - CHRONIC OBSTRUCTIVE PULMON DISEASE W ACUTE LOWER RESP INFCT Status: Acute Priority: High Current Visit: No (4) Diabetes mellitus type 2 with complications SNOMED Code(s): 30820651, 70366828266689 ICD Code: E11.8 - TYPE 2 DIABETES MELLITUS WITH UNSPECIFIED COMPLICATIONS Status: Acute Priority: High Current Visit: No Qualifiers: Diabetes mellitus terminal press operator insulin use: with terminal press operator use Qualified Code( s): E11.8 - Type 2 diabetes mellitus with unspecified complications; Z79.4 - buttermaker continuous churn (current) use of insulin (5) CKD (chronic kidney disease) stage 3, GFR 30-59 ml/min SNOMED Code(s): 170251955 ICD Code: N18.3 - CHRONIC KIDNEY DISEASE, STAGE 3 (MODERATE) Status: Chronic Priority: High Current Visit: No (6) UTI (urinary tract infection) SNOMED Code(s): 99306140 ICD Code: N39.0 - URINARY TRACT INFECTION, SITE NOT SPECIFIED Status: Acute Priority: Low Current Visit: No Qualifiers: Urinary tract infection type: site unspecified Problem List Initiated/Reviewed/Updated: Yes Orders Last 24hrs: Active Orders 24 hr Category Date Time Status Patient Status [ADT] Routine ADT 10/08/16 22:52 Active Diabetes Education [RC] Click To Edit Care 10/08/16 22:52 Active Intake and Output [RC] QSHIFT Care 10/08/16 22:52 Active Oxygen Therapy [RC] PRN Care 10/08/16 22:52 Active Up With Assistance [RC] ASDIRECTED Care 10/08/16 22:52 Active Up to Chair [RC] QID Care 10/08/16 22:52 Active VTE/DVT Education [RC] Per Unit Routine Care 10/08/16 22:52 Active Vital Signs [RC] Q4H Care 10/08/16 22:52 Active Consult to Case Management [CONS] Routine Cons 10/08/16 22:52 Active Consult to Securities Research Analyst [CONS] Routine Cons 10/08/16 22:52 Active OT Evaluation and Treatment [CONS] Routine Cons 10/08/16 22:52 Active PT Evaluation and Treatment [CONS] Routine Cons 10/08/16 22:52 Active Consistent Carbohydrate Diet [DIET] Diet 10/08/16 Breakfast Active BASIC METABOLIC PANEL,BMP [CHEM] AM Lab 10/09/16 05:11 Ordered CBC WITH AUTO DIFF [HEME] AM Lab 10/09/16 05:11 Ordered GLUCOSE POC LAB TO COLLECT [POC] QIDACANDBED Lab 10/09/16 07:30 Ordered UA W/MICROSCOPIC [URIN] AM Lab 10/09/16 05:11 Uncollected *O2 Med 10/08/16 22:52 Pending 1.5 l INH ASDIRECTED Acetaminophen [Tylenol] Med 10/08/16 22:52 Active 650 mg PO Q4H PRN Aspirin Med 10/09/16 09:00 Active 81 mg PO DAILY Atenolol [Tenormin] Med 10/09/16 09:00 Active 25 mg PO BID Baclofen [Lioresal] Med 10/08/16 22:52 Active 10 mg PO Q8H PRN Clopidogrel [Plavix] Med 10/09/16 09:00 Active 75 mg PO DAILY Codeine/guaiFENesin [Robitussin AC] Med 10/08/16 22:52 Active 5 ml PO Q4H PRN Docusate Sodium [Colace] Med 10/08/16 22:52 Active 100 mg PO BID Doxepin [SINEquan] Med 10/09/16 21:00 Active 25 - 50 mg PO BEDTIME Gabapentin [Neurontin] Med 10/09/16 21:00 Active 100 mg PO BEDTIME Insulin Aspart [NovoLOG] Med 10/08/16 22:52 Active See Protocol SUBCUT ASDIRECTED Insulin NPH/Insulin Reg,Human [NovoLIN 70-30] Med 10/09/16 09:00 Active 60 unit SUBCUT BID Ipratropium [Atrovent] Med 10/09/16 07:00 Active 0.5 mg INH QIDRT LORazepam [Ativan] Med 10/08/16 22:52 Active 1 mg IV Q6H PRN Levofloxacin [Levaquin] Med 10/09/16 23:00 Active 750 mg PO Q48H Levothyroxine [Synthroid] Med 10/09/16 07:30 Active 125 mcg PO ACBREAKFAST Losartan [Cozaar] Med 10/09/16 09:00 Active 25 mg PO DAILY Magnesium Hydroxide [Milk of Magnesia] Med 10/08/16 22:52 Active 30 ml PO Q12H PRN Morphine Med 10/08/16 22:52 Active 2 mg IVPUSH Q2H PRN Ondansetron [Zofran ODT] Med 10/08/16 22:52 Active 4 mg PO Q6H PRN Polyethylene Glycol 3350 [MiraLAX] Med 10/08/16 22:52 Active 17 gm PO DAILY PRN Ranitidine [Zantac] Med 10/09/16 09:00 Active 150 mg PO DAILY Tiotropium [Spiriva HandiHaler] Med 10/09/16 09:00 Active 18 mcg INH DAILY Zolpidem [Ambien] Med 10/08/16 22:52 Active 5 mg PO BEDTIME PRN Zolpidem [Ambien] Med 10/08/16 22:52 Active 5 mg PO BEDTIME PRN amLODIPine [Norvasc] Med 10/09/16 09:00 Active 10 mg PO DAILY atorvaSTATin [Lipitor] Med 10/09/16 21:00 Active 40 mg PO BEDTIME cloNIDine [Catapres] Med 10/09/16 21:00 Active 0.2 mg PO BEDTIME hydrOXYzine HCl [Atarax] Med 10/08/16 22:52 Active 25 mg PO BEDTIME hydrOXYzine HCl [Vistaril] Med 10/08/16 22:52 Active 25 mg .XX Q12H PRN oxyCODONE Med 10/08/16 22:52 Active 5 mg PO Q4H PRN Sequential Compression Device [OM.PC] Per Unit Routine Oth 10/08/16 22:52 Ordered Resuscitation Status Routine Resus Stat 10/08/16 22:33 Ordered Medication Orders Acetaminophen (Tylenol) 650 mg PO Q4H PRN PRN Reason: Pain (Mild 1-3)/fever Amlodipine Besylate (Norvasc) 10 mg PO DAILY [facility] Aspirin (Aspirin) 81 mg PO DAILY [facility] Atenolol (Tenormin) 25 mg PO BID [facility] Atorvastatin Calcium (Lipitor) 40 mg PO BEDTIME [facility] Baclofen (Lioresal) 10 mg PO Q8H PRN PRN Reason: Pain Clonidine HCl (Catapres) 0.2 mg PO BEDTIME [facility] Clopidogrel Bisulfate (Plavix) 75 mg PO DAILY [facility] Docusate Sodium (Colace) 100 mg PO BID [facility] Doxepin HCl (Sinequan) 25 - 50 mg PO BEDTIME [facility] Gabapentin (Neurontin) 100 mg PO BEDTIME [facility] Guaifenesin/Codeine Phosphate (Robitussin Ac) 5 ml PO Q4H PRN PRN Reason: Cough Hydroxyzine HCl (Atarax) 25 mg PO BEDTIME [facility] Hydroxyzine HCl (Vistaril) 25 mg .XX Q12H PRN PRN Reason: Itching Insulin Aspart (Novolog) 0 unit SUBCUT ASDIRECTED [facility] PRN Reason: Protocol Insulin Human Isoph/Insulin Regular (Novolin 70-30) 60 unit SUBCUT BID [facility] Ipratropium [place] (Atrovent) 0.5 mg INH QIDRT [facility] Levofloxacin (Levaquin) 750 mg PO Q48H [facility] Levothyroxine Sodium (Synthroid) 125 mcg PO ACBREAKFAST [facility] Lorazepam (Ativan) 1 mg IV Q6H PRN PRN Reason: Nausea/Vomiting Losartan Potassium (Cozaar) 25 mg PO DAILY [facility] Magnesium Hydroxide (Milk Of Magnesia) 30 ml PO Q12H PRN PRN Reason: Constipation Morphine Sulfate (Morphine) 2 mg IVPUSH Q2H PRN PRN Reason: Pain (severe 7-10) Non-Formulary Medication (*O2) 1.5 l INH ASDIRECTED [facility] Ondansetron HCl (Zofran Odt) 4 mg PO Q6H PRN PRN Reason: Nausea able to take PO Oxycodone HCl (Oxycodone) 5 mg PO Q4H PRN PRN Reason: Pain (moderate 4-6) Polyethylene Glycol (Miralax) 17 gm PO DAILY PRN PRN Reason: Constipation Ranitidine HCl (Zantac) 150 mg PO DAILY [facility] Tiotropium [place] (Spiriva Handihaler) 18 mcg INH DAILY [facility] Zolpidem Tartrate (Ambien) 5 mg PO BEDTIME PRN PRN Reason: Sleep Zolpidem Tartrate (Ambien) 5 mg PO BEDTIME PRN PRN Reason: Sleep Assessment/Plan Comment:: ASSESSMENT / PLAN -This is a 86 year old male present to ER with complaints of not feeling well since discharge from hospital at 17:17 today. Arrives to ER via EMS, his Son is here with Mr. Mccloud. Reports not feeling well, call EMS to transport to Hospital; this is a 86 y/o male present to the ER for evaluation of symptoms, he was discharge from [address] [place] [address] Med-surg at 17:17 today. While at home, ate supper, took evening medications at 5:30 pm. he denies any nausea, vomiting, chest pain, shortness of breath. He does report his head feels hot, Son is concerned of his vascular dementia, past brain blood clot in Jan 2016 and TIA. Son is requesting Care Home placement for weakness. will do Head CT to evaluation for any new changes to brain. will admit to [address] [place] [address] Observation for Care Home Placement. If possible admission to [facility] or [facility] in [place]. diagnosis Weakness -referral to OT and PT -referral to [facility] for Care Home placement for rehab, strengthening. Delirum due to known physiological condition -Head CT without contrast pending -monitor closely COPD -nebulizers ordered Diabetes Type 2 with Insulin -order Mix Insulin 70/30; give 30 units bid, next due at 0900 -blood glucose checks before meals and at bedtime -diabetic diet CKD -monitor Plan -Admit Observation to [address] [place] [address] for further monitoring -Oxygen per nasal cannula -Advise to notify nurses of any chest pain or other symptoms -And a.m. labs: CBC, BMP, ua Maintenance issues -Orders home meds:ordered -Nutrition: diabetic diet -Mathew catheter not indicated at this time -DVT: SCD -GI Prophalaxis; continue Zantac 150mg po bid CODE STATUS: DNR/DNI Admission status: Admit to Observation -I expect this patient to stay less than 24 hours, not to exceed 96 hours for evaluation and management of this problem. Disposition; Care Home Primary care provider: ELODIA Wright, [facility]
[2016-10-08] MEDS: Docusate Sodium 100 MG Cap PO SCH (23:34)
[2016-10-09] MEDS: Ipratropium 0.02% 0.5 MG/2.5 ML Neb Soln INH SCH ×2 (07:09→10:33)
[2016-10-09] MEDS ORDERED: Levothyroxine 50 MCG Tab PO SCH (07:30)
[2016-10-09] MEDS: Docusate Sodium 100 MG Cap PO SCH (08:29)
[2016-10-09] MEDS ORDERED: Atenolol 25 MG Tab PO SCH (09:00)
[2016-10-09] MEDS ORDERED: INSULIN REGULAR HUMAN SUBCUT SCH ×2 (09:00)
[2016-10-09] MEDS ORDERED: Clopidogrel 75 MG Tab PO SCH (09:00)
[2016-10-09] MEDS ORDERED: amLODIPine 10 MG Tab PO SCH (09:00)
[2016-10-09] MEDS ORDERED: INSULIN NPH SUBCUT SCH ×2 (09:00)
[2016-10-09] MEDS ORDERED: Losartan 50 MG Tab PO SCH (09:00)
[2016-10-09] MEDS ORDERED: Tiotropium Inhaler 18 MCG Inhalation Powder Cap Kit of 5 INH SCH (09:00)
[2016-10-09] MEDS ORDERED: Cefdinir 300 MG Cap PO SCH (09:00)
[2016-10-09] MEDS ORDERED: Aspirin 81 MG Tab.Chew PO SCH (09:00)
[2016-10-09 10:24] VITALS: BP 124/54
--- NOTE | 2016-10-09 13:29 | PCM.DCSUM1 ---
Discharge Summary - Hospital Course Brief History: 86-year-old male with history of O2 dependent COPD and insulin- dependent diabetes who presented with generalized weakness and was admitted for observation - Discharge Data Discharge Date: 10/09/16 Discharge Disposition: DC/Tfer to SNF 03 Condition: Fair - Discharge Diagnosis/Problem(s) (1) COPD (chronic obstructive pulmonary disease) with acute bronchitis SNOMED Code(s): 345869383591857 ICD Code: J44.0 - CHRONIC OBSTRUCTIVE PULMON DISEASE W ACUTE LOWER RESP INFCT Status: Chronic Priority: High Current Visit: No (2) Generalized weakness SNOMED Code(s): 11336464 ICD Code: R53.1 - WEAKNESS Status: Acute Priority: Medium Current Visit : Yes (3) Diabetes mellitus, insulin dependent (IDDM), controlled SNOMED Code(s): 49896977 ICD Code: E11.9 - TYPE 2 DIABETES MELLITUS WITHOUT COMPLICATIONS; Z79.4 - SKILLED NURSING (CURRENT) USE OF INSULIN Status: Chronic Current Visit: No (4) CKD (chronic kidney disease) stage 3, GFR 30-59 ml/min SNOMED Code(s): 955622646 ICD Code: N18.3 - CHRONIC KIDNEY DISEASE, STAGE 3 (MODERATE) Status: Chronic Priority: High Current Visit: No - Patient Summary/Data Consults: Consultations 10/08/16 22:52 Consult to Case Management [CONS] Routine Comment: Physician Instructions: Quantity: Consult to [employer] Operator [CONS] Routine Comment: Physician Instructions: Reason for Consult: halfway placement Special Instructions: [facility] Placement; [facility] OT Evaluation and Treatment [CONS] Routine Please Evaluate and Treat. OT Reason for Consult: Strengthening This query below is only for informational purposes and is not editable. PT Evaluation and Treatment [CONS] Routine Please Evaluate and Treat. PT Reason for Consult: Strengthening This query below is only for informational purposes and is not editable. Hospital Course: Fortunato presented to the emergency room last night with generalized weakness. He was recently hospitalized for management of acute bronchitis caused by an Escherichia coli bacteria. He was discharged yesterday doing fairly well but unfortunately after he got home he was too weak to be safe at home even with his son's assistance. He came back to the emergency room last night and was noted to have a mild elevation of his white blood cell count but no fevers and he hemodynamically was stable. He feels well the morning after discharge. He is too weak to be safe for outpatient management and would benefit from subacute rehabilitation at a halfway. He'll need 11 more doses of antibiotics and will be receiving cefdinir 300 mg twice daily with his first dose due tonight. We have recently made some adjustments to his insulin after borderline low blood sugars were noted during his recent hospital stay. May need to alter his current doses of the 70/30 mix of insulin but he has been fairly stable with the 30 units twice daily. He has a good potential for rehabilitation and a fairly quick discharge. he has been stable overnight with no acute issues. He is currently able to ambulate approximately 20 feet before he has shortness of breath and needs to rest. He is chronically on supplemental oxygen and has been stable on his usual dose of 2 L per minute. - Patient Instructions Diet: Diabetic Diet Activity: As Tolerated (up with assistance ) Showering/Bathing: May Shower Notify Provider of: Fever, Increased Pain, Nausea and/or Vomiting Other/Special Instructions: 1. You were in the hospital for observation and management of generalized weakness. This occurs after a recent episode of acute bronchitis. I recommend halfway admission for subacute rehabilitation with physical and occupational therapy. 2. For your bronchitis I recommend that you take cefdinir 300 mg twice daily for 11 more doses. You should take this medication with food to avoid stomach upset. Your first dose will be due tonight. 3. For diabetes management, takes 30 units of your 70/30 mixture twice daily with meals. You should also be on a sliding scale aspart insulin as below: Sliding scale insulin - if glucose is: <150 - no insulin. 150-199 - 1 unit. 200-249 - 2 units. 250-299 - 3 units. 300-349 - 4 units. 350-399 - 5 units. 4. CODE STATUS - full treatment without intubation and without ACLS. 5. Referral to physical and occupational therapy - diagnosis generalized weakness following acute respiratory infection. 6. Please seek medical attention if you develop fever greater than 101, have worsening of your shortness of breath or develop persistent vomiting or diarrhea. - Discharge Plan Prescriptions/Med Rec: Albuterol [Proventil Neb Soln] 2.5 mg INH Q4H PRN #120 neb PRN Reason: Shortness Of Breath Albuterol/Ipratropium [DuoNeb 3.0-0.5 MG/3 ML] 3 ml INH QID #120 neb Cefdinir [IJD: Cefdinir] 300 mg PO BID #11 capsule Insulin Aspart [NovoLOG] 1 unit SUBCUT ASDIRECTED #1 pen Insulin NPH/Insulin Reg,Human [Novolin 70-30] 30 units SUBCUT BIDAC #1 vial Home Medications: Home Meds *Urea 10% Lotion 1 dose TOP Q8H PRN 06/28/15 [History] Aspirin 81 mg PO DAILY 06/28/15 [History] Atenolol 25 mg PO BID 06/28/15 [History] Cholecalciferol (Vitamin D3) [Vitamin D3] 1,000 units PO BID 06/28/15 [History] Ranitidine [Zantac] 150 mg PO DAILY 06/28/15 [History] amLODIPine Besylate [Amlodipine Besylate] 10 mg PO DAILY 06/28/15 [History] atorvaSTATin [Lipitor] 40 mg PO BEDTIME 06/28/15 [History] cloNIDine HCl [Clonidine HCl] 0.2 mg PO BEDTIME 06/28/15 [History] Levothyroxine 125 mcg PO ACBREAKFAST 01/03/16 [History] Tiotropium [Spiriva HandiHaler] 18 mcg PO DAILY 02/24/16 [History] Baclofen 10 mg PO Q8H PRN 04/17/16 [History] Losartan [Cozaar] 25 mg PO DAILY 04/17/16 [History] hydrOXYzine HCl [hydrOXYzine] 25 mg PO Q12HR PRN 04/17/16 [History] *O2 1.5 l INH ASDIRECTED 04/24/16 [History] Clopidogrel [Plavix] 1 tab PO DAILY 08/01/16 [History] Doxepin [SINEquan] 1 - 2 cap PO BEDTIME 08/01/16 [History] Gabapentin [Neurontin] 1 tab PO BEDTIME 08/01/16 [History] guaiFENesin/Codeine Phosphate [Guaiatussin AC Liquid] 5 ml PO Q4HR PRN 08/01/16 [History] hydrOXYzine HCl [hydrOXYzine] 1 tab PO BEDTIME 08/01/16 [History] Zolpidem [Ambien] 5 mg PO BEDTIME PRN #15 tablet 10/08/16 [Rx] Albuterol [Proventil Neb Soln] 2.5 mg INH Q4H PRN #120 neb 10/09/16 [Rx] Albuterol/Ipratropium [DuoNeb 3.0-0.5 MG/3 ML] 3 ml INH QID #120 neb 10/09/16 [ Rx] Cefdinir [IJD: Cefdinir] 300 mg PO BID #11 capsule 10/09/16 [Rx] Insulin Aspart [NovoLOG] 1 unit SUBCUT ASDIRECTED #1 pen 10/09/16 [Rx] Insulin NPH/Insulin Reg,Human [Novolin 70-30] 30 units SUBCUT BIDAC #1 vial 04/17 [Rx] Patient Handouts: Acute Bronchitis Referrals: PCP,None [Primary Care Provider] - (f/u with your primary care after the halfway stay) - Discharge Summary/Plan Comment DC Time >30 min.: Yes (35 - new halfway discharge) - Patient Data Vitals - Most Recent: Last Vital Signs Temp 37.2 C 10/09/16 10:23 Pulse 68 10/09/16 10:33 Resp 16 10/09/16 10:23 BP 124/54 L 10/09/16 10:23 Pulse Ox 95 10/09/16 10:23 Weight - Most Recent: 91.989 kg I&O - Last 24 hours: Intake & Output 10/08/16 10/09/16 10/09/16 22:59 06:59 14:59 Intake Total 400 840 Output Total 550 Balance -150 840 Lab Results - Last 24 hrs: Laboratory Results - last 24 hr 10/08/16 10/09/16 10/09/16 Range/Units 23:54 05:03 05:03 WBC 13.6 H (4.5-11.0) K/uL RBC 4.09 L (4.30-5.90) M/uL Hgb 12.1 (12.0-15.0) g/dL Hct 36.8 L (40.0-54.0) % MCV 90 (80-98) fL MCH 30 (27-31) pg MCHC 33 (32-36) % Plt Count 263 (150-400) K/uL Neut % (Auto) 78 H (36-66) % Lymph % (Auto) 9 L (24-44) % [place] % (Auto) 9 H (2-6) % Eos % (Auto) 3 (2-4) % Baso % (Auto) 0 (0-1) % Sodium 139 L (140-148) mmol/L Potassium 4.7 (3.6-5.2) mmol/L Chloride 102 (100-108) mmol/L Carbon Dioxide 28 (21-32) mmol/L Anion Gap 13.7 (5.0-14.0) mmol/L BUN 24 H (7-18) mg/dL Creatinine 1.8 H (0.8-1.3) mg/dL Est Cr Clr Drug Dosing 28.56 mL/min Estimated GFR (MDRD) 36 L (>60) Glucose 229 H (74-106) mg/dL Calcium 8.6 (8.5-10.1) mg/dL Urine Color Yellow Urine Appearance Cloudy Urine pH 6.0 (4.5-8.0) Ur Specific [place] 1.015 (1.008-1.030) Urine Protein Trace (NEGATIVE) mg/dL Urine Glucose (UA) Normal (NEGATIVE) mg/dL Urine Ketones Negative (NEGATIVE) mg/dL Urine Occult Blood Moderate (NEGATIVE) Urine Nitrite Negative (NEGAITVE) Urine Bilirubin Negative (NEGATIVE) Urine Urobilinogen Normal (NORMAL) mg/dL Ur Leukocyte Esterase Large (NEGATIVE) Urine RBC 5-10 H (0-5) Urine WBC >100 H (0-5) Ur Epithelial Cells Few Amorphous Sediment Not seen Urine Bacteria Moderate Urine Mucus Not seen Med Orders - Current: Current Medications Acetaminophen (Tylenol) 650 mg PO Q4H PRN PRN Reason: Pain (Mild 1-3)/fever Last Admin: 10/09/16 03:37 Dose: 650 mg Amlodipine Besylate (Norvasc) 10 mg PO DAILY [facility] Last Admin: 10/09/16 08:28 Dose: 10 mg Aspirin (Aspirin) 81 mg PO DAILY [facility] Last Admin: 10/09/16 08:27 Dose: 81 mg Atenolol (Tenormin) 25 mg PO BID [facility] Last Admin: 10/09/16 08:28 Dose: 25 mg Atorvastatin Calcium (Lipitor) 40 mg PO BEDTIME [facility] Baclofen (Lioresal) 10 mg PO Q8H PRN PRN Reason: Pain Cefdinir (Omnicef) 300 mg PO BID [facility] Last Admin: 10/09/16 08:28 Dose: 300 mg Clonidine HCl (Catapres) 0.2 mg PO BEDTIME [facility] Clopidogrel Bisulfate (Plavix) 75 mg PO DAILY [facility] Last Admin: 10/09/16 08:27 Dose: 75 mg Docusate Sodium (Colace) 100 mg PO BID [facility] Last Admin: 10/09/16 08:29 Dose: 100 mg Doxepin HCl (Sinequan) 25 - 50 mg PO BEDTIME [facility] Gabapentin (Neurontin) 100 mg PO BEDTIME [facility] Guaifenesin/Codeine Phosphate (Robitussin Ac) 5 ml PO Q4H PRN PRN Reason: Cough Hydroxyzine HCl (Atarax) 25 mg PO BEDTIME [facility] Last Admin: 10/08/16 23:35 Dose: 25 mg Hydroxyzine HCl (Vistaril) 25 mg .XX Q12H PRN PRN Reason: Itching Insulin Aspart (Novolog) 0 unit SUBCUT ASDIRECTED [facility] PRN Reason: Protocol Last Admin: 10/09/16 07:31 Dose: 2 units Insulin Human Isoph/Insulin Regular (Novolin 70-30) 30 unit SUBCUT BID [facility] Last Admin: 10/09/16 08:29 Dose: 30 units Ipratropium [place] (Atrovent) 0.5 mg INH QIDRT [facility] Last Admin: 10/09/16 10:33 Dose: 0.5 mg Levothyroxine Sodium 75 mcg/ (Levothyroxine Sodium 50 mcg) 125 mcg PO ACBREAKFAST [facility] Last Admin: 10/09/16 08:26 Dose: 125 mcg Lorazepam (Ativan) 1 mg IV Q6H PRN PRN Reason: Nausea/Vomiting Losartan Potassium (Cozaar) 25 mg PO DAILY [facility] Last Admin: 10/09/16 08:27 Dose: 25 mg Magnesium Hydroxide (Milk Of Magnesia) 30 ml PO Q12H PRN PRN Reason: Constipation Morphine Sulfate (Morphine) 2 mg IVPUSH Q2H PRN PRN Reason: Pain (severe 7-10) Ondansetron HCl (Zofran Odt) 4 mg PO Q6H PRN PRN Reason: Nausea able to take PO Oxycodone HCl (Oxycodone) 5 mg PO Q4H PRN PRN Reason: Pain (moderate 4-6) Polyethylene Glycol (Miralax) 17 gm PO DAILY PRN PRN Reason: Constipation Ranitidine HCl (Zantac) 150 mg PO DAILY [facility] Last Admin: 10/09/16 08:27 Dose: 150 mg Tiotropium [place] (Spiriva Handihaler) 18 mcg INH DAILY [facility] Last Admin: 10/09/16 08:36 Dose: Not Given Zolpidem Tartrate (Ambien) 5 mg PO BEDTIME PRN PRN Reason: Sleep Discontinued Medications Insulin Human Isoph/Insulin Regular (Novolin 70-30) 60 unit SUBCUT BID [facility] Levofloxacin (Levaquin) 750 mg PO Q48H SHMUEL *Q Meaningful Use (DIS) - VTE *Q VTE Criteria *Q: - Stroke *Q Stroke Criteria *Q: - AMI *Q AMI Criteria *Q:
[2016-10-09] MEDS ORDERED: cloNIDine 0.1 MG Tab PO SCH (21:00)
[2016-10-09] MEDS ORDERED: Doxepin 25 MG Cap PO SCH (21:00)
[2016-10-09] MEDS ORDERED: Levofloxacin 250 MG Tab PO SCH (21:00)
[2016-10-09] MEDS ORDERED: Gabapentin 100 MG Cap PO SCH (21:00)
[2016-10-09] MEDS ORDERED: atorvaSTATin 20 MG Tab PO SCH (21:00)
[2016-10-09] MEDS ORDERED: Levofloxacin 500 MG Tab PO SCH (23:00)
== END 2016-10-09 14:10 ==
LOC: JP.ED 21:59 → JP.MS 22:31
PROVIDERS: ADMIT Internal Medicine; ATTEND Internal Medicine
DX: J44.0 Chronic obstructive pulmonary disease with (acute) lower respiratory infection (principal); R53.1 Weakness; Z79.82 Long term (current) use of aspirin; Z79.899 Other long term (current) drug therapy; Z88.0 Allergy status to penicillin; Z88.1 Allergy status to other antibiotic agents; Z88.8 Allergy status to other drugs, medicaments and biological substances; E11.22 Type 2 diabetes mellitus with diabetic chronic kidney disease; I12.9 Hypertensive chronic kidney disease with stage 1 through stage 4 chronic kidney disease, or unspecified chronic kidney disease; N18.3 Chronic kidney disease, stage 3 (moderate); Z79.4 Long term (current) use of insulin; J45.909 Unspecified asthma, uncomplicated; E78.00 Pure hypercholesterolemia, unspecified; J44.9 Chronic obstructive pulmonary disease, unspecified; K21.9 Gastro-esophageal reflux disease without esophagitis; E11.21 Type 2 diabetes mellitus with diabetic nephropathy; E03.9 Hypothyroidism, unspecified; Z90.49 Acquired absence of other specified parts of digestive tract; Z98.890 Other specified postprocedural states; Z87.891 Personal history of nicotine dependence
CPT/HCPCS: 36415; 70450; 80048; 81001; 82962; 85025; 94640; 97162; 97165; 99217; 99219; 99285; A9270; G0378

== ENCOUNTER 2017-02-01 15:45 | Emergency (ER) | payer MEDICARE, OTHER, MEDICAID ==
[2017-02-01 16:45] VITALS: BP 159/68
--- NOTE | 2017-02-01 17:20 | EDM.PDOC ---
ED HPI GENERAL MEDICAL PROBLEM - General Chief Complaint: Genitourinary Problem Stated Complaint: BLOOD IN URINE Time Seen by Provider: 02/01/17 16:00 Source of Information: Reports: Patient, EMS, Family History Limitations: Reports: No Limitations - History of Present Illness INITIAL COMMENTS - FREE TEXT/NARRATIVE: 87-year-old male who is being treated for a UTI has developed hematuria over the past several days. This afternoon he passed a clot which worried him so he called the ambulance. He denies any pain, he has no fever or chills. Denies any back pain. Onset: Gradual (Over the past 3 days) Severity: Mild Associated Symptoms: Reports: Shortness of Breath (Patient is chronically short of breath, O2 dependent). Denies: Fever/Chills, Loss of Appetite - Related Data Allergies Allergy/AdvReac Type Severity Reaction Status Date / Time amoxicillin Allergy Rash Verified 02/01/17 16:02 insulin glargine, human Allergy Cannot Verified 02/01/17 16:02 recombin. a Remember [From Lantus] Penicillins Allergy Rash Verified 02/01/17 16:02 lisinopril AdvReac Cough Verified 02/01/17 16:02 Home Meds: Home Meds *Urea 10% Lotion 1 dose TOP Q8H PRN 06/28/15 [History] Aspirin 81 mg PO DAILY 06/28/15 [History] Atenolol 25 mg PO BID 06/28/15 [History] Cholecalciferol (Vitamin D3) [Vitamin D3] 1,000 units PO BID 06/28/15 [History] Ranitidine [Zantac] 150 mg PO DAILY 06/28/15 [History] atorvaSTATin [Lipitor] 40 mg PO BEDTIME 06/28/15 [History] cloNIDine HCl [Clonidine HCl] 0.2 mg PO BEDTIME 06/28/15 [History] Levothyroxine 125 mcg PO ACBREAKFAST 01/03/16 [History] Tiotropium [Spiriva HandiHaler] 18 mcg PO DAILY 02/24/16 [History] Baclofen 10 mg PO Q8H PRN 04/17/16 [History] Losartan [Cozaar] 25 mg PO DAILY 04/17/16 [History] *O2 1.5 l INH ASDIRECTED 04/24/16 [History] Clopidogrel [Plavix] 1 tab PO DAILY 08/01/16 [History] Doxepin [SINEquan] 1 - 2 cap PO BEDTIME 08/01/16 [History] Gabapentin [Neurontin] 1 tab PO BEDTIME 08/01/16 [History] hydrOXYzine HCl [hydrOXYzine] 1 tab PO BEDTIME 08/01/16 [History] Albuterol [Proventil Neb Soln] 2.5 mg INH Q4H PRN #120 neb 10/09/16 [Rx] Albuterol/Ipratropium [DuoNeb 3.0-0.5 MG/3 ML] 3 ml INH QID #120 neb 10/09/16 [ Rx] Cefdinir [IJD: Cefdinir] 300 mg PO BID #11 capsule 10/09/16 [Rx] Insulin Aspart [NovoLOG] 1 unit SUBCUT ASDIRECTED #1 pen 10/09/16 [Rx] Insulin NPH/Insulin Reg,Human [Novolin 70-30] 30 units SUBCUT BIDAC #1 vial 04/17 [Rx] amLODIPine Besylate [Amlodipine Besylate] 10 mg PO DAILY #30 tablet 10/09/16 [Rx ] guaiFENesin/Codeine Phosphate [Guaiatussin AC Liquid] 5 ml PO Q4HR PRN #240 liquid 10/09/16 [Rx] Sulfamethoxazole/Trimethoprim [Bactrim Ds Tablet] 1 tab PO BID 02/01/17 [History ] Past Medical History HEENT History: Reports: Allergic Rhinitis, Cataract, Hard of Hearing, Impaired Vision, Sinusitis Cardiovascular History: Reports: Aneurysm, High Cholesterol, Hypertension, Other (See Below) Other Cardiovascular History: 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 Uses 3 liters of O2. Gastrointestinal History: Reports: GERD Genitourinary History: Reports: Diabetic Nephropathy, Prostate Disorder, Urinary Incontinence, UTI, Recurrent Other Genitourinary History: known UTI Musculoskeletal History: Reports: Arthritis, Back Pain, Chronic, Other (See Below) Other Musculoskeletal History: "sciatica Neurological History: Reports: CVA, Head Trauma, Neuropathy, Diabetic, Seizure, TIA, Other (See Below) Other Neuro History: aneurysm 1999. Psychiatric History: Reports: Anxiety, Depression Endocrine/Metabolic History: Reports: Diabetes, Type II, Hypothyroidism Hematologic History: Reports: None - Infectious Disease History Infectious Disease History: Reports: Chicken Pox, Influenza - Past Surgical History HEENT Surgical History: Reports: Cataract Surgery, Oral Surgery, Tonsillectomy GI Surgical History: Reports: Cholecystectomy Social & Family History - Family History Family Medical History: Unobtainable - Tobacco Use Smoking Status *Q: Never Smoker Years of Tobacco use: 50 Packs/Tins Daily: 1 Used Tobacco, but Quit: Yes Month Tobacco Last Used: 1997 Second Hand Smoke Exposure: No - Caffeine Use Caffeine Use: Reports: Coffee - Recreational Drug Use Recreational Drug Use: No - Living Situation & Occupation Occupation: Disabled ED ROS GENERAL - Review of Systems Review Of Systems: See Below Constitutional: Reports: Malaise. Denies: Fever, Chills HEENT: Reports: No Symptoms Respiratory: Reports: Shortness of Breath Cardiovascular: Denies: Chest Pain GI/Abdominal: Denies: Abdominal Pain, Diarrhea : Reports: Hematuria. Denies: Dysuria Skin: Reports: Bruising (Bruises easily) Neurological: Reports: Other (Hard of hearing) ED EXAM, RENAL/ - Physical Exam Exam: See Below Exam Limited By: No Limitations General Appearance: Alert, No Apparent Distress Eye Exam: Bilateral Eye: EOMI Respiratory/Chest: No Respiratory Distress, Wheezing (A few scattered expiratory wheezes were heard) GI/Abdominal: Soft, Non-Tender (Male) Exam: Other (Patient's foreskin was retracted and there was some purulent discharge. Evidence of recent bleeding was on the pads and around the penis but nothing at the meatus. He had no tenderness of the testicles, no hernia or no palpation tenderness of the lower abdomen.) Course - Vital Signs Last Recorded V/S: Last Vital Signs Temp 98.8 F 02/01/17 15:55 Pulse 59 L 02/01/17 16:44 Resp 20 02/01/17 16:44 BP 159/68 H 02/01/17 16:44 Pulse Ox 97 02/01/17 16:44 - Orders/Labs/Meds Labs: Laboratory Tests 02/01/17 02/01/17 02/01/17 Range/Units 16:20 16:20 16:44 WBC 10.9 (4.5-11.0) K/uL RBC 4.04 L (4.30-5.90) M/uL Hgb 11.9 L (12.0-15.0) g/dL Hct 36.4 L (40.0-54.0) % MCV 90 (80-98) fL MCH 30 (27-31) pg MCHC 33 (32-36) % Plt Count 266 (150-400) K/uL Neut % (Auto) 71 H (36-66) % Lymph % (Auto) 13 L (24-44) % [place] % (Auto) 9 H (2-6) % Eos % (Auto) 7 H (2-4) % Baso % (Auto) 1 (0-1) % Sodium 143 (140-148) mmol/L Potassium 5.6 H (3.6-5.2) mmol/L Chloride 109 H (100-108) mmol/L Carbon Dioxide 26 (21-32) mmol/L Anion Gap 13.6 (5.0-14.0) mmol/L BUN 41 H D (7-18) mg/dL Creatinine 2.5 H (0.8-1.3) mg/dL Est Cr Clr Drug Dosing 20.20 mL/min Estimated GFR (MDRD) 25 L (>60) Glucose 118 H (74-106) mg/dL Calcium 8.4 L (8.5-10.1) mg/dL Total Bilirubin 0.2 (0.2-1.0) mg/dL AST 15 (15-37) U/L ALT 18 (12-78) U/L Alkaline Phosphatase 125 H (46-116) U/L Total Protein 7.7 (6.4-8.2) g/dL Albumin 3.2 L (3.4-5.0) g/dL Globulin 4.5 H (2.3-3.5) g/dL Albumin/Globulin Ratio 0.7 L (1.2-2.2) Urine Color Red Urine Appearance Cloudy Urine pH 5.0 (4.5-8.0) Ur Specific [place] 1.015 (1.008-1.030) Urine Protein 500 H (NEGATIVE) mg/dL Urine Glucose (UA) Normal (NEGATIVE) mg/dL Urine Ketones Negative (NEGATIVE) mg/dL Urine Occult Blood Large (NEGATIVE) Urine Nitrite Negative (NEGAITVE) Urine Bilirubin Negative (NEGATIVE) Urine Urobilinogen 1 (NORMAL) mg/dL Ur Leukocyte Esterase Moderate (NEGATIVE) Urine RBC Packed H (0-5) Urine WBC 20-30 H (0-5) Ur Epithelial Cells Few Amorphous Sediment Not seen Urine Bacteria Few Urine Mucus Not seen - Re-Assessments/Exams Free Text/Narrative Re-Assessment/Exam: 02/01/17 17:19 A urine was obtained by quick catheter in and out. It was packed with RBCs. CBC and CMP reveal chronic renal insufficiency somewhat worse than his baseline and a hemoglobin of 11.9 which is typical of his baseline. Departure - Departure Time of Disposition: 18:41 Disposition: Home, Self-Care 01 Condition: Fair Clinical Impression: Hematuria Qualifiers: Hematuria type: unspecified type Qualified Code(s): R31.9 - Hematuria, unspecified UTI (urinary tract infection) Qualifiers: Urinary tract infection type: site unspecified Hematuria presence: with hematuria Qualified Code(s): N39.0 - Urinary tract infection, site not specified - Discharge Information Instructions: Hematuria, Adult Referrals: PCP,None [Primary Care Provider] - Forms: ED Department Discharge Care Plan Goals: Finish your antibiotics, and if bloody urine continues call for a recheck with a urologist in [place]. Return if bleeding becomes heavy, you develop a fever or other concerning symptoms.
== END 2017-02-01 18:43 | disposition home or self-care (01) ==
LOC: JP.ED 15:45
DX: N39.0 Urinary tract infection, site not specified (principal); R31.9 Hematuria, unspecified; E11.40 Type 2 diabetes mellitus with diabetic neuropathy, unspecified; I10 Essential (primary) hypertension; E78.00 Pure hypercholesterolemia, unspecified; J44.9 Chronic obstructive pulmonary disease, unspecified; K21.9 Gastro-esophageal reflux disease without esophagitis; Z87.01 Personal history of pneumonia (recurrent); Z86.73 Personal history of transient ischemic attack (TIA), and cerebral infarction without residual deficits; E11.21 Type 2 diabetes mellitus with diabetic nephropathy; M19.90 Unspecified osteoarthritis, unspecified site; F41.9 Anxiety disorder, unspecified; F32.9 Major depressive disorder, single episode, unspecified; E03.9 Hypothyroidism, unspecified; Z98.890 Other specified postprocedural states; Z90.49 Acquired absence of other specified parts of digestive tract; Z98.49 Cataract extraction status, unspecified eye; Z79.899 Other long term (current) drug therapy; Z79.82 Long term (current) use of aspirin; Z88.0 Allergy status to penicillin; Z88.1 Allergy status to other antibiotic agents; Z88.8 Allergy status to other drugs, medicaments and biological substances
CPT/HCPCS: 36415; 80053; 81001; 85025; 99283; 99284